=== PATIENT | female | born 1970 | race Caucasian/White ===

== ENCOUNTER → 2017-09-08 | Outpatient (CLI) | payer BC ==
--- NOTE | 2017-09-08 08:20 | DIAGNOSTIC IMAGING REPORT ---
GALLBLADDER-ABD LIMITED CLINICAL HISTORY: R19.01 Abdominal mass, RUQ (right upper quadrant) pain. Mass. TECHNIQUE: Ultrasound COMPARISON STUDY: None FINDINGS: Normal gallbladder. No shadowing gallstones. Common bile duct 5 mm. Liver is uniform. Pancreas and right kidney are unremarkable. No evidence for renal hydronephrosis. IMPRESSION: Normal study The above report was generated using voice recognition software. It may contain grammatical, syntax or spelling errors. Electronically signed by: Gideon Bolivar M.D. 09/08/2017 8:18 AM Dictated Date/Time: 09/08/2017 8:17 AM
== END | disposition home or self-care (01) ==
LOC: C.ULTRBC 07:47
PROVIDERS: ATTEND Surgery
DX: R19.01 Right upper quadrant abdominal swelling, mass and lump (principal)

== ENCOUNTER → 2017-09-19 | Outpatient (CLI) | payer BC ==
[~2017-09-19] MED LIST: SINCALIDE INJ 2.1 MCG in SODIUM CHLORIDE 0.9% 100ML 100 ML IV ONE
--- NOTE | 2017-09-19 15:02 | DIAGNOSTIC IMAGING REPORT ---
HEPATOBILIARY EF IMAGING HISTORY: Pain. Nausea R19.01 Abdominal mass, RUQ (right upper quadrant) COMPARISON: None. TECHNIQUE: Immediately following the intravenous administration of 5.6 mCi Tc-99m Choletec, dynamic anterior abdominal imaging pre/post 2.1 mcg of Kinevac was performed. FINDINGS: Uniform hepatic tracer accumulation is shown. Prompt intrahepatic biliary excretion is seen. The gallbladder, common bile duct, and small bowel are all visualized by 20 minutes. This appearance represents the normal sequence of biliary excretion. The gallbladder ejection fraction following administration of Kinevac was 81 % (normal >35%). IMPRESSION: 1. No evidence for cystic duct obstruction. 2. Gallbladder ejection fraction calculated to be 81 %. The above report was generated using voice recognition software. It may contain grammatical, syntax or spelling errors. Electronically signed by: Gideon Bolivar M.D. 09/19/2017 3:01 PM Dictated Date/Time: 09/19/2017 2:59 PM
== END | disposition home or self-care (01) ==
LOC: C.NUCL 12:29
PROVIDERS: ATTEND Surgery
DX: R19.01 Right upper quadrant abdominal swelling, mass and lump (principal)

== ENCOUNTER 2022-08-30 13:54 | Observation (INO) ==
--- NOTE | 2022-08-30 14:18 | XRay Report ---
XR chest 1V portable CLINICAL HISTORY: Chest pain, nonspecific TECHNIQUE: Single frontal radiograph of the chest was obtained. Comparison: None available at the time of this dictation. FINDINGS: No lines and tubes are seen. The cardiomediastinal silhouette is normal. The lungs are clear. No evid ence of pleural effusion or pneumothorax. IMPRESSION: No acute chest disease. ACT 112: Negative or not required by law. Electronically signed by: Delfino Baeza M.D. 08/30/2022 2:17 PM
[2022-08-30] MEDS ORDERED: ASPIRIN CHEW 324 MG PO STA (14:23)
[2022-08-30] MEDS ORDERED: SODIUM CHLORIDE 0.9% 1000ML 1,000 ML IV ONE (14:23)
[2022-08-30] MEDS ORDERED: NITROGLYCERIN SL 0.4 MG/TAB TAB SL STA (14:23)
--- NOTE | 2022-08-30 14:23 | Emergency Department Note ---
History of Present Illness General Chief Complaint: Chest Pain Stated Complaint: CODE PURPLE Time Seen by Provider: 08/30/22 14:02 History of Present Illness Provider Complaint: chest pain Time: 13:30 Duration: improved Onset: during rest Pain Location: substernal and right chest Severity: moderate Quality: + aching and + dull Relieved By: + nothing Exacerbated By: + inspiration Associated symptoms: + nausea and + dyspnea; no syncope (near syncope), no palpitations or no fever Home Medications Medication Instructions Recorded Confirmed Type multivitamin (Daily Multi-Vitamin 1 tab PO DAILY 11/17/18 08/30/22 History tablet) fluticasone propionate 50 1 spray intranasal DAILY PRN 12/14/21 08/30/22 History mcg/actuation nasal Congestion spray,suspension (Flonase Allergy Relief) topiramate 25 mg tablet 50 mg PO HS #60 tabs 07/17/22 08/30/22 Rx Allergies Allergy/AdvReac Type Severity Reaction Status Date / Time amoxicillin Allergy Unknown RASH Verified 08/30/22 15:40 morphine AdvReac Unknown N/V Verified 08/30/22 15:40 Past Med/Surg History Medical History Abdominal mass, RUQ (right upper quadrant) resolved Acute bronchitis resolved Anxiety Depression History of anesthesia reaction 2015 > pt reports during a dental procedure, dentist said tongue was abnormally large, had to be held back by family medicine physician assistant during the surgery > has lost weight since, feels may no longer be an issue, nothing was reported after last dental procedure Obesity LEEANN (obstructive sleep apnea) no longer using cpap due to weight loss > has lost approx 30-35lbs. Right hip pain Tinea corporis Tubular adenoma of colon Surgical History History of arthroscopy of knee right knee History of breast biopsy benign History of delivery x3 History of endometrial ablation + D&C History of placement of ear tubes History of right hip replacement History of tonsillectomy and adenoidectomy Hx of oral surgery for broken tooth S/P tubal ligation during CS Family History (Updated 08/30/22 @ 14:34 by Alejandro Gutiérrez) Mother Hearing loss Breast cancer genetic testing pending Grandmother (Maternal) Diabetes Grandfather (Maternal) Diabetes Grandfather (Paternal) Cancer Stomach cancer Other Obesity Pulmonary embolism Denies family history of Ovarian cancer Prostate cancer Clotting disorder Myocardial infarction Colorectal cancer Uterine cancer Social History Smoking Status: Former smoker Tobacco Type: Cigarettes packs per day: 0.5; Cigarettes Per Day: 5+; Second Hand Exposure: No; Hx Alcohol Use: Yes Alcohol type: wine and hard liquor Alcohol Intake Frequen cy: Monthly or Less Hx Substance Use: No Preferred Language: Serbian Communication Ability: Effective Visual Impairment: No Limitations Hearing Ability: Normal 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 Beliefs That Will Affect Care: None marital status: Current Living Situation: Family and Significant Other Current Living Situation Comment: lives with fiance current occupational status: employed 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 many Children do You have: 3 Feels Safe at Home: Yes Childhood Exposure to Second-Hand Smoke: No caffeine: Yes during the past year weight has: remained stable Dental Care, Regularly: Yes Physical Activity Frequency: 3-4 Times per Week Seatbelt Use: always Sunscreen Use: Yes Assistive Devices: Glasses Physical Exam Vital Signs Vital Signs - 24 hr 08/30/22 13:55 08/30/22 14:08 08/30/22 14:02 Temperature 36.8 C Temperature Source Oral Pulse Rate 66 69 Pulse Rate [Finger] Pulse Rhythm [Finger] Pulse Strength [Finger] Respiratory Rate 20 Respiratory Effort / Characteristics Respiratory Depth Respiratory Pattern Blood Pressure 163/128 H Blood Pressure [Right Arm] Blood Pressure Mean 139 Blood Pressure Mean [Right Arm] Blood Pressure Position [Right Arm] Pulse Oximetry 95 95 Oxygen Delivery Method Room Air Room Air Sepsis Recent Fever Within 48 Hours No Sepsis New/Unexplained Change in Mental Status N/A Sepsis Action Taken by Nursing No Action Required 08/30/22 15:05 08/30/22 15:35 08/30/22 16:15 Temperature Temperature Source Pulse Rate Pulse Rate [Finger] 86 68 70 Pulse Rhythm [Finger] Regular Pulse Strength [Finger] Normal Respiratory Rate 18 18 18 Respiratory Effort / Characteristics Non-Labored Spontaneous Non-Labored Non-Labored Respiratory Depth Normal Normal Normal Respiratory Pattern Regular Regular Regular Blood Pressure Blood Pressure [Right Arm] 202/105 H 168/98 H 163/99 H Blood Pressure Mean Blood Pressure Mean [Right Arm] 137 121 120 Blood Pressure Position [Right Arm] Sitting Pulse Oximetry 95 95 95 Oxygen Delivery Method Room Air Room Air Room Air Sepsis Recent Fever Within 48 Hours Sepsis New/Unexplained Change in Mental Status Sepsis Action Taken by Nursing Physical Exam HENT: Exam performed. -Head: Normocephalic and atraumatic. -Right Ear: External ear normal. No mastoid erythema -Left Ear: External ear normal. No mastoid erythema EYES: Conjunctivae and EOM are normal. Right eye exhibits no discharge. Left eye exhibits no discharge. No scleral icterus. NECK: Normal range of motion. Neck supple. No JVD present. CV: Normal rate, regular rhythm, normal heart sounds and intact distal pulses. There is no peripheral edema. Palpable radial pulses bue. PULM/CHEST: Effort normal and breath sounds normal. No respiratory distress. No stridor. She has no wheezes. She has no rales. ABD: The abdomen is soft. There is no tenderness. There is no rebound, no guarding, NEURO: Motor and sensation grossly intact. SKIN: Skin is warm and dry. She is not diaphoretic. PSYCH: She has a normal mood and affect. Behavior is normal. Judgment and tho ught content normal. Course Course 1402: The patient was evaluated in room C7. A complete history and physical exam was performed Cardiac monitoring: An order was placed for continuous cardiac monitoring. The monitor shows a rate of 70 with sinus rhythm interpreted by nd 1520: Vital signs stable. Labs and imaging within normal limits including negative chest x-ray D-dimer and troponin. Patient will be admitted [facility] team for chest pain rule out ACS discussed case with Dr. Morales who will evaluate the patient. Administered Medications Topiramate (Topiramate 50 Mg Tab) 50 mg PO HS [facility] Stop: 09/29/22 20:59 Last Admin: 08/30/22 20:09 Dose: 50 mg Documented By: BCM Discontinued Medications Acetaminophen (Acetaminophen 500 Mg Tab) 1,000 mg PO NOW STA Stop: 08/30/22 16:48 Last Admin: 08/30/22 18:18 Dose: 1,000 mg Documented By: ADRIENNE Aspirin (Aspirin Chew 324 Mg) 324 mg PO NOW STA Stop: 08/30/22 14:24 Last Admin: 08/30/22 15:01 Dose: 324 mg Documented By: BAL Sodium Chloride (Nss 1000ml) 1,000 mls @ 999 mls/hr IV .Q1H1M ONE Stop: 08/30/22 15:23 Last Infusion: 08/30/22 16:08 Dose: 0 mls/hr Documented By: ADRIENNE(2) Admin: 08/30/22 15:04 Dose: 999 mls/hr Documented By: BAL Ketorolac Tromethamine (Ketorolac Tromethamine 15 Mg/Ml Vial) 15 mg IV NOW STA Stop: 08/30/22 15:57 Last Admin: 08/30/22 16:05 Dose: 15 mg Documented By: ADRIENNE(2) Nitroglycerin (Nitroglycerin Sl 0.4 Mg/Tab Tab) 0.4 mg SL NOW STA Stop: 08/30/22 14:24 Last Admin: 08/30/22 15:01 Dose: 0.4 mg Documented By: BAL Medical Decision Making Laboratory Data Attestation: I reviewed the patient's lab results. 08/30/22 14:11 08/30/22 14:11 Labs: Lab Results 08/30/22 08/30/22 08/30/22 Range/Units 14:03 14:11 14:11 WBC 7.14 (4.8-10.8) K/ul RBC 5.24 (4.20-5.40) M/uL Hgb 16.6 H (12.0-16.0) g/dl Hct 48.2 H (37.0-47.0) % MCV 92.0 (80.0-100.0) fL MCH 31.7 (25.0-34.0) pg MCHC 34.4 (32.0-36.0) g/dL RDW Std Deviation 41.9 (36.4-46.3) fL RDW Coeff of Domo 12.4 (11.5-14.5) % Plt Count 340 (130-400) K/uL MPV 9.4 (9.4-12.4) fL Immature Gran % (Auto) 0.1 % Neut % (Auto) 57.3 % Lymph % (Auto) 32.2 % Blount % (Auto) 8.5 % Eos % (Auto) 1.1 % Baso % (Auto) 0.8 % Neut # (Auto) 4.08 (1.40-6.50) K/uL Lymph # (Auto) 2.30 (1.2-3.4) K/uL Blount # (Auto) 0.61 H (0.11-0.59) K/uL Eos # (Auto) 0.08 (0-0.50) K/uL Baso # (Auto) 0.06 (0-0.2) K/uL Immature Gran # (Auto) 0.01 (0.01-0.20) K/uL PT (9.0-12.0) Seconds INR (0.9-1.1) APTT (21.0-31.0) Seconds PTT Ratio D-Dimer (0-500) ug/L FEU Sodium 141 (136-145) mmol/L Potassium 3.8 (3.5-5.1) mmol/L Chloride 105 (98-107) mmol/L Carbon Dioxide 28 (21-32) mmol/L Anion Gap 8 (3-11) BUN 11 (6-23) mg/dl Creatinine 0.82 (0.6-1.2) mg/dl Est Cr Clr Drug Dosing 96.9 ml/min Est GFR ( Amer) 97.4 ml/min Est GFR (Non-Af Amer) 84.0 ml/min BUN/Creatinine Ratio 13.4 (10-20) Glucose 91 (70-99(Fasting)) mg/dl POC Glucose 91 (70-99) mg/dl Calcium 9.5 (8.6-10.3) mg/dl Troponin I High Sens 2.6 (0-14) pg/ml Lipase 16 (11-82) U/L 08/30/22 Range/Units 14:11 WBC (4.8-10.8) K/ul RBC (4.20-5.40) M/uL Hgb (12.0-16.0) g/dl Hct (37.0-47.0) % MCV (80.0-100.0) fL MCH (25.0-34.0) pg MCHC (32.0-36.0) g/dL RDW Std Deviation (36.4-46.3) fL RDW Coeff of Domo (11.5-14.5) % Plt Count (130-400) K/uL MPV (9.4-12.4) fL Immature Gran % (Auto) % Neut % (Auto) % Lymph % (Auto) % Blount % (Auto) % Eos % (Auto) % Baso % (Auto) % Neut # (Auto) (1.40-6.50) K/uL Lymph # (Auto) (1.2-3.4) K/uL [place]ount # (Auto) (0.11-0.59) K/uL Eos # (Auto) (0-0.50) K/uL Baso # (Auto) (0-0.2) K/uL Immature Gran # (Auto) (0.01-0.20) K/uL PT 10.1 (9.0-12.0) Seconds INR 0.9 (0.9-1.1) APTT 28.0 (21.0-31.0) Seconds PTT Ratio 1.0 D-Dimer 340 (0-500) ug/L FEU Sodium (136-145) mmol/L Potassium (3.5-5.1) mmol/L Chloride (98-107) mmol/L Carbon Dioxide (21-32) mmol/L Anion Gap (3-11) BUN (6-23) mg/dl Creatinine (0.6-1.2) mg/dl Est Cr Clr Drug Dosing ml/min Est GFR ( Amer) ml/min Est GFR (Non-Af Amer) ml/min BUN/Creatinine Ratio (10-20) Glucose (70-99(Fasting)) mg/dl POC Glucose (70-99) mg/dl Calcium (8.6-10.3) mg/dl Troponin I High Sens (0-14) pg/ml Lipase (11-82) U/L Imaging Data Chest x-ray: Attestation: I personally reviewed and interpreted this imaging study as follows: My impression: Chest x-ray negative. Airway clear. No pneumothorax. No consolidation. No cardiomegaly or cephalization.. No free air under the diaphragm. No fractures of the skeletal structures. Radiologist's impression: Chest X-Ray 08/30/22 14:03 XR chest 1V portable CLINICAL HISTORY: Chest pain, nonspecific TECHNIQUE: Single frontal radiograph of the chest was obtained. Comparison: None available at the time of this dictation. FINDINGS: No lines and tubes are seen. The cardiomediastinal silhouette is normal. The lungs are clear. No evidence of pleural effusion or pneumothorax. IMPRESSION: No acute chest disease. ACT 112: Negative or not required by law. Electronically signed by: Delfino Baeza M.D. 08/30/2022 2:17 PM ECG Data Attestation: I personally reviewed and interpreted this ECG as follows: Indication: chest pain Rate (beats per minute): 73 Rhythm: normal sinus Findings: no ST depression, no ST elevation or no prolonged QT MDM Narrative 1402: The patient was evaluated in room C7. A complete history and physical exam was performed Cardiac monitoring: An order was placed for continuous cardiac monitoring. The monitor shows a rate of 70 with sinus rhythm interpreted by me 1520: Vital signs stable. Labs and imaging within normal limits including negative chest x-ray D-dimer and troponin. Patient will be admitted to the [facility] team for chest pain rule out ACS discussed case with Dr. Morales who will evaluate the patient. Impression & Plan Chest pain Discharge Plan Visit Data Chief Complaint: Chest Pain Stated Complaint: CODE PURPLE ED Provider: Alejandro Gutiérrez Discharge Problem: Chest pain Patient Disposition: Admitted As Inpatient Discharge Instructions Interventions: ED Discharge Assessment Last Done: 08/30/22 17:20 Chest pain Qualifiers: Chest pain type: unspecified Qualified Code(s): R07.9 - Chest pain, unspecified
[2022-08-30 14:34] LABS: Basophils # (auto) 0.06 K/uL (0-0.2); Basophils % (auto) 0.8 %; Eosinophils # (auto) 0.08 K/uL (0-0.50); Eosinophils % (auto) 1.1 %; Hematocrit (blood only) 48.2 % (37.0-47.0); Hemoglobin 16.6 g/dl (12.0-16.0); Immature Granulocytes # (auto) 0.01 K/uL (0.01-0.20); Immature Granulocytes % (auto) 0.1 %; Lymphocytes % (auto) 32.2 %; Mean Corpuscular Hemoglobin 31.7 pg (25.0-34.0); Mean Corpuscular Hgb Conc 34.4 g/dL (32.0-36.0); Mean Platelet Volume 9.4 fL (9.4-12.4); Monocytes # (auto) 0.61 K/uL (0.11-0.59); Monocytes % (auto) 8.5 %; Neutrophils # (auto) 4.08 K/uL (1.40-6.50); Neutrophils % (auto) 57.3 %; Platelet Count 340 K/uL (130-400); RDW Coefficient of Variation 12.4 % (11.5-14.5); RDW Standard Deviation 41.9 fL (36.4-46.3); Red Blood Count 5.24 M/uL (4.20-5.40); White Blood Count 7.14 K/ul (4.8-10.8)
[2022-08-30 14:47] LABS: BUN Creatinine Ratio 13.4 (10-20); Calcium 9.5 mg/dl (8.6-10.3); Creatinine Clr Calc Pharmacy 96.9 ml/min; Est GFR (African American) 97.4 ml/min; Potassium 3.8 mmol/L (3.5-5.1)
[2022-08-30 14:54] LABS: Troponin I High Sensitivity 2.6 pg/ml (0-14)
[2022-08-30 15:05] LABS: D Dimer 340 ug/L FEU (0-500); INR 0.9 (0.9-1.1); Prothrombin Time 10.1 Seconds (9.0-12.0)
[2022-08-30] MEDS ORDERED: KETOROLAC TROMETHAMINE 15 MG/ML VIAL IV STA (15:56)
--- NOTE | 2022-08-30 16:03 | History & Physical Report ---
Date of Service August 30, 2022 Assessment & Plan (1) Chest pain, rule out acute myocardial infarction: Plan: Initial troponin negative. Will continue to trend. If negative and TTE normal suspect patent can be discharged tomorrow as most likely MSK pain given reproducibility on exam. (2) Pre-syncope: Plan: Suspect most likely vagal response in relation to pain. Monitor for recurrent and arrhythmia on telemetry. Plan VTE Prophylaxis - low risk Diet - heart healthy Disposition - observation to med/tele Admission and Anticipated Discharge Date Admission Date: August 30, 2022 History of Present Illness Chief Complaint: Chest pain Primary Care Provider: Malvin Reynolds DO Puneet De La Torre is a 51 year old female who presents to the ER with chest pain. She is an employee at [employer] and a code purple was called. Around 1:30pm she had an episode of chest pain, substernal, no radiation, severity 3-4/10 initially, currently 1-2/10, making it feel like she had to cough, pain reproducible on exam, unknown if worse on exertion as she hasn't been up and walking around yet, occurred while sitting in chair scanning documents. She felt the pain and went to call co-workers name at which point she became dizzy and presyncopal slipping out of chair but did not fall down to the ground. She is still having discomfort in chest. No GERD history of acid taste in her mouth. No prior MS or stroke. Non-smoker. No known HTN or T2DM. No unilateral weakness, change in sensation, change in speech, vision or hearing. This is on a background of getting nasal congestion yesterday and thinking she was gett a cold but after taking allergy medicine this morning she felt better. Takes Topamax for weight loss and for headaches. Takes Claritin and Flonase as needed for allergies. Allergies Allergy/AdvReac Type Severity Reaction Status Date / Time amoxicillin Allergy Unknown RASH Verified 08/30/22 15:40 morphine AdvReac Unknown N/V Verified 08/30/22 15:40 Home Medications Medication Instructions Recorded Confirmed Type multivitamin (Daily Multi-Vitamin 1 tab PO DAILY 11/17/18 08/30/22 History tablet) fluticasone propionate 50 1 spray intranasal DAILY PRN 12/14/21 08/30/22 History mcg/actuation nasal Congestion spray,suspension (Flonase Allergy Relief) topiramate 25 mg tablet 50 mg PO HS #60 tabs 07/17/22 08/30/22 Rx Past Med/Surg History Medical History Abdominal mass, RUQ (right upper quadrant) resolved Acute bronchitis resolved Anxiety Depression History of anesthesia reaction 2015 > pt reports during a dental procedure, dentist said tongue was abnormally large, had to be held back by speech and language assistant during the surgery > has lost weight since, feels may no longer be an issue, nothing was reported after last dental procedure Obesity LEEANN (obstructive sleep apnea) no longer using cpap due to weight loss > has lost approx 30-35lbs. Right hip pain Tinea corporis Tubular adenoma of colon Surgical History History of arthroscopy of knee right knee History of breast biopsy benign History of delivery x3 History of endometrial ablation + D&C History of placement of ear tubes History of right hip replacement History of tonsillectomy and adenoidectomy Hx of oral surgery for broken tooth S/P tubal ligation during CS Family History (Updated 08/30/22 @ 14:34 by Alejandro Gutiérrez) Mother Hearing loss Breast cancer genetic testing pending Grandmother (Maternal) Diabetes Grandfather (Maternal) Diabetes Grandfather (Paternal) Cancer Stomach cancer Other Obesity Pulmonary embolism Denies family history of Ovarian cancer Prostate cancer Clotting disorder Myocardial infarction Colorectal cancer Uterine cancer Social History Smoking Status: Former smoker Tobacco Type: Cigarettes packs per day: 0.5; Cigarettes Per Day: 5+; Second Hand Exposure: No; Hx Alcohol Use: Yes Alcohol type: wine and hard liquor Alcohol Intake Frequency: Monthly or Less Hx Substance Use: No Preferred Language: Algerian Communication Ability: Effective Visual Impairment: No Limitations 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 Beliefs That Will Affect Care: None marital status: Current Living Situation: Family and Significant Other Current Living Situation Comment: lives with fiance 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 occupational status: employed 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 many Children do You have: 3 Feels Safe at Home: Yes Childhood Exposure to Second-Hand Smoke: No caffeine: Yes during the past year weight has: remained stable Dental Care, Regularly: Yes Physical Activity Frequency: 3-4 Times per Week Seatbelt Use: always Sunscreen Use: Yes Assistive Devices: Glasses Review of Systems Review of Systems: All systems reviewed & are unremarkable except as noted in HPI & below Physical Exam Constitutional: WD/WN, vitals as above ENMT: external ear and nose normal, oropharynx normal Neck: trachea midline, no thyromegaly Respiratory: normal respiratory effort, lungs clear to auscultation Cardiovascular: RRR, no murmur, no edema Gastrointestinal (Abdomen): normal bowel sounds, soft, nontender, no hepatosplenomegaly Musculoskeletal: no cyanosis or clubbing, extremities motor strength 5/5 Skin: no rashes, warm and dry Neurologic: moves all extremities and awake; not confused Psychiatric: A+Ox3, euthymic affect Results & Data Results & Data Vital Signs (Past 12 Hours) Vital Signs Temp Pulse Pulse Resp BP BP Pulse Ox 08/30/22 15:35 68 18 168/98 H 95 08/30/22 15:05 86 18 202/105 H 95 08/30/22 14:02 69 08/30/22 14:08 95 08/30/22 13:55 36.8 C 66 20 163/128 H 95 O2 Del Method 08/30/22 15:35 Room Air 08/30/22 15:05 Room Air 08/30/22 14:02 08/30/22 14:08 Room Air 08/30/22 13:55 Room Air Laboratory Results Abnormal lab results 08/30/22 Range/Units 14:11 Hgb 16.6 H (12.0-16.0) g/dl Hct 48.2 H (37.0-47.0) % [place] # (Auto) 0.61 H (0.11-0.59) K/uL Diagnostic Findings XR chest 1V portable CLINICAL HISTORY: Chest pain, nonspecific TECHNIQUE: Single frontal radiograph of the chest was obtained. Comparison: None available at the time of this dictation. FINDINGS: No lines and tubes are seen. The cardiomediastinal silhouette is normal. The lungs are clear. No evidence of pleural effusion or pneumothorax. IMPRESSION: No acute chest disease. Medications Administered ER Medications Given: ASA 324mg PO NSS 1L bolus Nitroglycerin 0.4mg SL Toradol 15mg IV ECG Rate (beats per minute): 73 Rhythm: sinus with SA Findings: no acute ischemic change Comparison ECG Date: from (Jan 11, 2019) Change: no significant change Code Status & VTE Plan Code Status Full VTE Prophylaxis Plan VTE Prophylaxis will be ordered: No PG Care Time/CCT Total # of Minutes Spent Total Time Spent with Patient: Total time spent is greater than 50% in coordination of care (as documented) at patient's floor/unit and/or counseling patient: Coding Level of Care Code 57245 INT INP/OBS CARE 2/55MIN Diagnoses Chest pain, rule out acute myocardial infarction R07.9 Pre-syncope R55
[2022-08-30] MEDS ORDERED: ACETAMINOPHEN 500 MG TAB PO STA (16:47)
--- NOTE | 2022-08-30 17:16 | Electrocardiogram Report ---
Test Reason : Blood Pressure : / mmHG Vent. Rate : 073 BPM Atrial Rate : 073 BPM P-R Int : 150 ms QRS Dur : 084 ms QT Int : 382 ms P-R-T Axes : 030 047 043 degrees QTc Int : 420 ms Normal sinus rhythm with sinus arrhythmia Normal ECG When compared with ECG of 11-JAN-2019 08:47, No significant change was found Confirmed by Barrie Amaya ([id number]) on 08/30/2022 5:15:59 PM Referred By: REFERRED SELF Confirmed By:Barrie Amaya
[2022-08-30] MEDS ORDERED: ACETAMINOPHEN 325 MG TAB PO PRN (17:44)
[2022-08-30] MEDS ORDERED: TOPIRAMATE 50 MG TAB PO SCH (21:00)
[2022-08-31 06:47] LABS: Basophils # (auto) 0.06 K/uL (0-0.2); Basophils % (auto) 0.8 %; Eosinophils # (auto) 0.11 K/uL (0-0.50); Eosinophils % (auto) 1.4 %; Hematocrit (blood only) 42.4 % (37.0-47.0); Hemoglobin 14.9 g/dl (12.0-16.0); Immature Granulocytes # (auto) 0.02 K/uL (0.01-0.20); Immature Granulocytes % (auto) 0.3 %; Lymphocytes # (auto) 2.58 K/uL (1.2-3.4); Lymphocytes % (auto) 33.6 %; Mean Corpuscular Hgb Conc 35.1 g/dL (32.0-36.0); Mean Platelet Volume 9.4 fL (9.4-12.4); Monocytes # (auto) 0.67 K/uL (0.11-0.59); Monocytes % (auto) 8.7 %; Neutrophils # (auto) 4.23 K/uL (1.40-6.50); Neutrophils % (auto) 55.2 %; Platelet Count 292 K/uL (130-400); RDW Coefficient of Variation 12.7 % (11.5-14.5); RDW Standard Deviation 41.4 fL (36.4-46.3); Red Blood Count 4.66 M/uL (4.20-5.40); White Blood Count 7.67 K/ul (4.8-10.8)
[2022-08-31 06:54] LABS: Anion Gap 8 (3-11); BUN Creatinine Ratio 15.7 (10-20); Blood Urea Nitrogen 11 mg/dl (6-23); Calcium 8.3 mg/dl (8.6-10.3); Carbon Dioxide 25 mmol/L (21-32); Chloride 108 mmol/L (98-107); Chol HDL Ratio 3.3 (0-5); Cholesterol 156 mg/dl (0-200); Creatinine Clr Calc Pharmacy 113.7 ml/min; Est GFR (African American) 117.9 ml/min; Est GFR (Non-African American) 101.7 ml/min; Glucose 92 mg/dl (70-99(Fasting)); HDL Cholesterol 48 mg/dl; LDL Cholesterol Calculated 88 mg/dl; Potassium 4.2 mmol/L (3.5-5.1); Sodium 141 mmol/L (136-145); Triglycerides 100 mg/dl (0-150); VLDL Cholesterol 20 mg/dl (0-30)
[2022-08-31 07:02] LABS: Troponin I High Sensitivity < 2.3 pg/ml (0-14)
[2022-08-31 07:14] LABS: Estimated Average Glucose 103 mg/dl; Hemoglobin A1C 5.2 % (4.5-5.6)
--- NOTE | 2022-08-31 11:07 | Discharge Summary ---
Date of Service August 31, 2022 Admission HPI Per Admitting Provider Puneet De La Torre is a 51 year old female who presents to the ER with chest pain. She is an employee at [employer] and a code purple was called. Around 1:30pm she had an episode of chest pain, substernal, no radiation, severity 3-4/10 initially, currently 1-2/10, making it feel like she had to cough, pain reproducible on exam, unknown if worse on exertion as she hasn't been up and walking around yet, occurred while sitting in chair scanning documents. She felt the pain and went to call co-workers name at which point she became dizzy and presyncopal slipping out of chair but did not fall down to the ground. She is still having discomfort in chest. No GERD history of acid taste in her mouth. No prior FL or stroke. Non-smoker. No known HTN or T2DM. No unilateral weakness, change in sensation, change in speech, vision or hearing. This is on a background of getting nasal congestion yesterday and thinking she was gett a cold but after taking allergy medicine this morning she felt better. Takes Topamax for weight loss and for headaches. Takes Claritin and Flonase as needed for allergies. Principal Diagnosis chest pain Discharge Exam Constitutional WD/WN, vitals as above ENMT external ear and nose normal, oropharynx normal Neck trachea midline, no thyromegaly Respiratory normal respiratory effort, lungs clear to auscultation Cardiovascular RRR, no murmur, no edema Musculoskeletal no cyanosis or clubbing, extremities motor strength 5/5 Skin no rashes, warm and dry Neurologic moves all extremities and awake; not confused Psychiatric A+Ox3, euthymic affect Discharge Data Allergies Allergy/AdvReac Type Severity Reaction Status Date / Time amoxicillin Allergy Unknown RASH Verified 08/30/22 15:40 morphine AdvReac Unknown N/V Verified 08/30/22 15:40 Consultations 08/30/22 15:19 ED Decision to Admit Stat Hospital Course (1) Chest pain, rule out acute myocardial infarction: $11 yo female presnted with chest pain. Likely musculoskeletal in nature. Pain lasted for hours from about 1:45 pm to close to midnight. Given extensive duration of chest pain with no increase of troponin. This rules out an ACS. Will discharge patient, and have her followup with her PCP. Normal Echo (2) Pre-syncope: Suspect most likely vagal response in relation to pain. Total Time Total Time Spent Total Time Spent (In Minutes): 35 Discharge Plan Discharge Items Patient Disposition: Home - Self-Care Reason For Visit: CHEST PAIN RULE OUT FL Discharge Diagnosis: chest pain rule out FL Activity: Resume your previous activity Non-emergency contact: Primary Care Provider Call non-emergency contact if: you have any medication questions Follow-up/Referrals: Malvin Reynolds, [Primary Care Provider] - 09/06/22 9:20 am Diet: Heart Healthy Addtl Attending Provider Instructions: Recommend followup with your PCP in 1-2 weeks. Pending Studies at Discharge: No Stand-Alone Forms: My [employer], Smoking Cessation Medications and DC Order Prescriptions: Continued multivitamin [Daily Multi-Vitamin] tablet 1 tab PO DAILY topiramate 25 mg tablet 50 mg PO HS Qty: 60 2RF fluticasone propionate [Flonase Allergy Relief] 50 mcg/actuation spray,suspension 1 spray intranasal DAILY PRN (Reason: Congestion) Rx Instructions: administer into each nostril Discharge Orders: Discharge Order (Routine); Ordered 08/31/22 Ordered By: Tank Gerardo Admission Data Admit Date/Time: 08/30/22 16:47 Attending Provider: Tank Gerardo Admit Provider: Eleno Morales Primary Care Provider: Malvin Reynolds Other Providers: Eleno Morales Other Interventions: Discharge Summary Assessment (RN) Last Done: 08/31/22 11:26 Coding Level of Care Code 00495 INP/OBS DISCH >30 MIN Diagnoses Chest pain, rule out acute myocardial infarction R07.9 Pre-syncope R55
--- NOTE | 2022-08-31 12:48 | XCELERA ---
[id number]
== END 2022-08-31 11:35 | disposition home or self-care (01) ==
LOC: 2N 13:54 → ED 13:54 → SUATTDRO 16:47 → 2N 17:20

== ENCOUNTER 2024-01-08 11:31 | Inpatient (IN) ==
[2024-01-08] MEDS ORDERED: LABETALOL HCL IV 5 MG/ML 20ML IV STA (11:48)
--- NOTE | 2024-01-08 11:50 | Emergency Department Note ---
Impression & Plan Stroke-like symptom, Numbness and tingling, Acute right-sided muscle weakness ED Provider Note NAME: YESY VALLE AGE: 53 SEX: F : 1970 ARRIVES VIA: Walk-In INFORMANT: Patient, ED PROVIDER(S): Stanley Ledbetter DO CHIEF COMPLAINT: Weakness HPI: The patient is a 53-year-old female who presented to the emergency department for an evaluation of right-sided weakness. She states that she for started noticing a tingling sensation and a warm sensation on the right side of her face. She then started noticing the same sensation in her right arm and right leg. The patient has no history of stroke or irregular heartbeat. She does not take blood thinners. She states that this began approximately 11 AM. The patient denies having any headache nausea or vomiting. She did not see a provider prior to coming emergency department but came directly to the emergency department because of concerns for stroke. ROS: See above HPI for pertinent positives & negatives. A total of 10 systems reviewed and were otherwise negative. PAST MEDICAL HISTORY: See Below PAST SURGICAL HISTORY: See Below FAMILY HISTORY: See Below SOCIAL HISTORY: See Below HOME MEDICATIONS: See Below ALLERGIES: See Below VITALS: See Below PHYSICAL EXAMINATION: GENERAL: The patient is awake and alert. She is very anxious appearing. EYES: The conjunctivae are clear. The pupils are round and reactive. EARS, NOSE, MOUTH AND THROAT: The nose is without any evidence of any deformity. NECK: The neck is nontender and supple. RESPIRATORY: Normal respiratory effort is noted there is no evidence of wheezing rhonchi or rales CARDIOVASCULAR: Regular rate and rhythm noted there no murmurs rubs or gallops normal S1 normal S2. GASTROINTESTINAL: The abdomen is soft. Abdomen is nontender. MUSCULOSKELETAL/EXTREMITIES: There is no evidence of gross deformity full range of motion is noted in the hips and shoulders. SKIN: There is no obvious evidence of any rash. There are no petechiae, pallor or cyanosis noted. NEUROLOGIC: Patient is awake alert and oriented x3. There was a facial droop sparing the forehead on the right mostly involving the right corner of the mouth. 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 The patient is able to hold each leg off of the bed for greater than 5 seconds but there is a tremulous finding in the right lower extremity. MEDICAL DECISION MAKING: The patient is a 53-year-old female who presented to the emergency department for an evaluation of strokelike symptoms. The patient presented through triage and was identified with possible strokelike symptoms. She was taken directly to CAT scan. I evaluated the patient and CAT scan. She was found to have a right- sided facial droop with forehead sparing but also she had right upper and right lower extremity weakness. She also had subjective numbness over the right arm and right leg. The patient was felt to be a good candidate for TNK. Initial CT showed no acute process. Pharmacy was consulted and had TNK at the bedside but not drawn up. The patient's initial NIH was approximately 5. She did slowly improve while she was in the emergency department. I discussed the patient's condition with the teleroke neurologist. After their evaluation they felt the patient was improving and did not want to recommend TNK at this time. The patient was agreeable to that plan. I discussed her condition with the on-call [facility] hospitalist. The patient initially had high blood pressure which improved without intervention. Triage Nursing notes reviewed. Prior medical records reviewed Vital Signs: reviewed and remarkable for no significant abnormalities Differential diagnosis: Infection, dehydration, metabolic abnormality, hypo/hyperglycemia, electrolyte disturbance, anemia, hypoxia, cardiac sources, intracerebral event, toxicologic, neurologic, as well as other pathologies. ER treatment provided: See below Diagnostics interpreted by me: ECG: EKG was obtained in the emergency department. My interpretation is normal sinus rhythm at 67 bpm. There is no ectopy. There is no acute ST segment abnormalities noted. This was compared to a tracing from August 21, 2023. No changes were noted. Cardiac Monitoring: An order was placed for continuous cardiac monitoring. The monitor shows a rate of 67 bpm with sinus rhythm. Laboratory studies: As stated above and show below. Imaging studies: See below. Radiographic imaging was reviewed by myself Consultation(s): I discussed this case with Dr. Sheriff who [facility]. I discussed this case with Dr. Clifford who is on-call for the [facility] group. ED COURSE: Procedures: none Critical Care: I have personally spent greater than 45 minutes of critical care time in the direct management of this patient. This includes bedside care, interpretation of diagnostic studies, and testing, discussion with consultants, patient, and family members, and other required patient management activities. This 45 minutes is in excess of all separately billable procedures. Past Med/Surg History Problem List (Updated 01/08/24 @ 13:22 by Stanley Ledbetter DO) Acute right-sided muscle weakness (Acute) Numbness and tingling (Acute) Stroke-like symptom (Acute) Stroke-like symptom Bradykinesia Gait abnormality 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 Cognitive changes Tremor Pre-syncope Left knee pain Abnormal uterine bleeding (AUB) Polyarthralgia LEEANN (obstructive sleep apnea) Metabolic syndrome Breast mass Vertigo Parkinson disease Obesity Right hip pain Medical History History of migraine Tremor History of COVID-19 02/2023 Tubular adenoma of colon LEEANN (obstructive sleep apnea) Previous CPAP (has not used since weight loss of approximately 30-35lbs) Depression Anxiety Tinea corporis Surgical History History of anesthesia reaction Patient reports during a dental procedure in 2015, dentist said tongue was abnormally large and had to be held back by account assistant during the surgery > has lost weight since, feels may no longer be an issue, nothing was reported after more recent dental procedure History of colonoscopy S/P dilation and curettage Hx of oral surgery for broken tooth S/P tubal ligation during CS History of tonsillectomy and adenoidectomy History of placement of ear tubes History of delivery x3 History of breast biopsy benign History of endometrial ablation + D&C History of arthroscopy of knee right knee History of right hip replacement Family History Mother Hearing loss Breast cancer Grandmother (Maternal) Diabetes Grandfather (Maternal) Diabetes Grandfather (Paternal) Cancer Stomach cancer Father Pulmonary embolism Other Obesity Denies family history of Ovarian cancer Prostate cancer Clotting disorder Myocardial infarction Colorectal cancer Uterine cancer Social History Smoking Status: Former smoker Tobacco Type: Cigarettes packs per day: 0.5; Cigarettes Per Day: 5+; Second Hand Exposure: No; Do You Dip or Chew Tobacco: No; Hx Alcohol Use: Yes Alcohol type: wine and hard liquor Alcohol Intake Frequency: Monthly or Less Hx Substance Use: No Preferred Language: Swiss Communication Ability: Effective Visual Impairment: No Limitations Hearing Ability: Normal Senior Account Manager Required: No Beliefs That Will Affect Care: None marital status: Current Living Situation: Spouse Current Living Situation Comment: lives with roney current occupational status: employed 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 many Children do You have: 3 Feels Safe at Home: Yes Childhood Exposure to Second-Hand Smoke: No Diet: regular caffeine: Yes during the past year weight has: remained stable Dental Care, Regularly: Yes Physical Activity Frequency: 3-4 Times per Week Seatbelt Use: always Sunscreen Use: Yes Assistive Devices: Glasses Allergies Allergies Allergy/AdvReac Type Severity Reaction Status Date / Time amoxicillin Allergy Unknown Rash Verified 11/20/23 08:36 morphine AdvReac Unknown N/V Verified 11/20/23 08:36 Home Meds Home Medications Medication Instructions Recorded Confirmed multivitamin (Daily Multi-Vitamin 1 tab PO DAILY 11/17/18 01/08/24 tablet) fluticasone propionate 50 1 spray intranasal DAILY PRN 12/14/21 01/08/24 mcg/actuation nasal Congestion spray,suspension (Flonase Allergy Relief) methocarbamol 500 mg tablet 500 mg PO Q8H PRN Spasms 01/30/23 01/08/24 venlafaxine 75 mg capsule,extended 75 mg PO BID 10/06/23 01/08/24 release 24 hr carbidopa ER 50 mg-levodopa 200 mg 1.5 tab PO TID 01/08/24 01/08/24 tablet,extended release ondansetron 4 mg disintegrating 4 mg PO DIRECTED PRN n/v 01/08/24 01/08/24 tablet Previous Rx's Medication Instructions Recorded gabapentin 400 mg capsule 400 mg PO TID #90 caps 08/15/23 Results & Data (ED) Vital Signs Vital Signs - 24 hr 01/08/24 11:36 01/08/24 12:00 01/08/24 12:01 Temperature 36.8 C Temperature Source Temporal Artery Scan Pulse Rate 92 H 81 80 Pulse Rate [Apical] Pulse Rate from SpO2 Sensor 82 Respiratory Rate 18 20 Respiratory Effort / Characteristics Non-Labored Respiratory Depth Normal Blood Pressure 177/111 H 126/87 Blood Pressure [Left Arm] Blood Pressure Mean 133 100 Blood Pressure Mean [Left Arm] Blood Pressure Position [Left Arm] Pulse Oximetry 97 97 Oxygen Delivery Method Room Air Room Air Sepsis Recent Fever Within 48 Hours No Sepsis New/Unexplained Change in Mental Status No Sepsis Action Taken by Nursing No Action Required 01/08/24 12:30 01/08/24 12:37 01/08/24 12:37 Temperature Temperature Source Pulse Rate 75 Pulse Rate [Apical] 67 Pulse Rate from SpO2 Sensor 75 Respiratory Rate 17 20 Respiratory Effort / Characteristics Non-Labored Spontaneous Respiratory Depth Normal Blood Pressure 131/94 Blood Pressure [Left Arm] 144/90 H Blood Pressure Mean 112 Blood Pressure Mean [Left Arm] 108 Blood Pressure Position [Left Arm] Sitting Pulse Oximetry 95 96 Oxygen Delivery Method Room Air Room Air Sepsis Recent Fever Within 48 Hours Sepsis New/Unexplained Change in Mental Status Sepsis Action Taken by Fdc Medications Current Medication List: was personally reviewed by me Laboratory Data Attestation: I reviewed the patient's lab results. 01/08/24 12:10 01/08/24 12:10 Lab Results 01/08/24 01/08/24 Range/Units 12:06 12:10 WBC 6.56 (4.8-10.8) K/ul RBC 4.84 (4.20-5.40) M/uL Hgb 15.2 (12.0-16.0) g/dl Hct 44.7 (37.0-47.0) % MCV 92.4 (80.0-100.0) fL MCH 31.4 (25.0-34.0) pg MCHC 34.0 (32.0-36.0) g/dL RDW Std Deviation 39.8 (36.4-46.3) fL RDW Coeff of Domo 11.8 (11.5-14.5) % Plt Count 255 (130-400) K/uL MPV 9.0 L (9.4-12.4) fL Immature Gran % (Auto) 0.2 % Neut % (Auto) 62.1 % Lymph % (Auto) 24.7 % Childress % (Auto) 10.7 % Eos % (Auto) 1.2 % Baso % (Auto) 1.1 % Neut # (Auto) 4.08 (1.40-6.50) K/uL Lymph # (Auto) 1.62 (1.20-3.40) K/uL Childress # (Auto) 0.70 H (0.11-0.59) K/uL Eos # (Auto) 0.08 (0.00-0.50) K/uL Baso # (Auto) 0.07 (0.00-0.20) K/uL Immature Gran # (Auto) 0.01 (0.01-0.20) K/uL PT 10.3 (9.0-12.0) Seconds INR 0.9 (0.9-1.1) APTT 29 (21-31) Seconds PTT Ratio 1.1 Sodium 135 L (136-145) mmol/L Potassium 4.0 (3.5-5.1) mmol/L Chloride 102 (98-107) mmol/L Carbon Dioxide 29 (21-32) mmol/L Anion Gap 4 (3-11) BUN 15 (6-23) mg/dl Creatinine 0.80 (0.6-1.2) mg/dl Est Cr Clr Drug Dosing 100.7 ml/min Est GFR ( Amer) 98.9 ml/min Est GFR (Non-Af Amer) 85.4 ml/min BUN/Creatinine Ratio 18.8 (10-20) Glucose 93 (70-99(Fasting)) mg/dl POC Glucose 106 H (70-99) mg/dl Calcium 8.7 (8.6-10.3) mg/dl Magnesium 2.0 (1.7-2.4) mg/dl Total Bilirubin 0.7 (0.2-1.0) mg/dl AST 13 (13-39) U/L ALT 5 L (7-52) U/L Alkaline Phosphatase 68 (34-104) U/L Troponin I High Sens < 2.3 (0-14) pg/ml Total Protein 6.2 (6.0-8.3) gm/dl Albumin 4.0 (3.4-5.0) gm/dl Globulin 2.2 L (2.5-4.0) gm/dl Albumin/Globulin Ratio 1.8 (0.9-2) Administered Medications Discontinued Medications Ioversol (Optiray 320 125ml) 120 ml IV ONCE ONE Stop: 01/08/24 11:55 Last Admin: 01/08/24 11:54 Dose: 120 ml Documented By: SOPHIA Imaging Data Attestation: I personally reviewed and interpreted this imaging study as follows: My Impression: 1 view chest x-ray was obtained in the emergency department. My interpretation is no free air or definite filtrate, final report below. CT of the brain was obtained in the emergency department. My interpretation is no intracranial hemorrhage or mass effect, final report below. Radiologist's Impression: Chest X-Ray 01/08/24 11:38 XR chest 1V portable CLINICAL HISTORY: neuro deficit, acute stroke suspected COMPARISON STUDY: Chest radiograph August 30, 2022. FINDINGS: Lung volumes are normal. Lungs are clear. There is no pneumothorax or pleural effusion. Cardiac size is normal. Mediastinal contours are normal. There is no evidence for pulmonary edema. IMPRESSION: No acute cardiopulmonary findings. ACT 112: Negative or not required by law. Electronically signed by: Jack Major M.D. 01/08/2024 12:[address] 01/08/24 11:38 CT OF THE HEAD WITHOUT CONTRAST CLINICAL HISTORY: neuro deficit, acute stroke suspected. Right-sided weakness. COMPARISON STUDY: MRI of the brain November 15, 2022. Head CT August 25, 2023. TECHNIQUE: Helical axial images of the head were obtained without IV contrast. Automated exposure control was utilized for the study. A dose lowering technique was utilized adhering to the principles of ALARA. FINDINGS: No acute intracranial hemorrhage, midline shift or mass effect is present. The ventricular system is unremarkable. The basal cisterns are patent. No extra-axial collections are present. There are no findings to suggest acute dural sinus thrombosis or acute territorial infarct. No significant calvarial abnormalities are present. Visualized portions of the sinuses and mastoid air cells are clear. IMPRESSION: No acute intracranial findings. ACT 112: Negative or not required by law. Electronically signed by: Jack Major M.D. 01/08/2024 11:49 AM Head CTA 01/08/24 11:38 HEAD CTA HISTORY: neuro deficit, acute stroke suspected TECHNIQUE: Multiaxial CT images of the head were performed both before and after the intravenous administration of contrast to evaluate the major cerebral vessels. 3D/MIP images were also obtained. Sagittal and coronal reformats were reviewed. A dose lowering technique was utilized adhering to the principles of ALARA. COMPARISON: Head CT 08/25/23. FINDINGS: There is no mass, hematoma, midline shift, or acute infarct. Visualized intracranial internal carotid arteries, distal vertebral arteries, and basilar artery are widely patent. There is no significant stenosis, occlusion, or aneurysm seen within the bilateral ACAs, MCAs, or health care liaison. The major dural venous sinuses are patent. 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 This is considered to be a normal variant. IMPRESSION: No significant stenosis, occlusion, or aneurysm within the [place]. ACT 112: Negative or not required by law. Electronically signed by: Oliver Rosario M.D. 01/08/2024 12:23 PM Neck CTA 01/08/24 11:38 CT angio neck with con CLINICAL HISTORY: 53 years-old Female with neuro deficit, acute stroke suspected. Acute strokelike symptoms COMPARISON STUDY: Head CT and CTA had studies of same TECHNIQUE: Following the IV administration of 120 mL of Optiray, CT angiogram of the neck was performed from the aortic arch to the skull base. Images are reviewed in the axial, sagittal, and coronal planes. 3-D MIPS images are created and assessed. IV contrast was administered without complication. All measurements were calculated based on NASCET criteria. A dose lowering technique was utilized adhering to the principles of ALARA. FINDINGS: Patent carotid and vertebral arteries. 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 No aneurysm, dissection, high-grade stenosis or arterial occlusion. Lung apices are clear. No pneumothorax. Unremarkable soft tissues. No lymphadenopathy or acute fracture. IMPRESSION: 1. No aneurysm, dissection, high-grade stenosis or arterial occlusion. 2. 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 ACT 112: Negative or not required by law. The above report was generated using voice recognition software. It may contain grammatical, syntax or spelling errors. Electronically signed by: Selvin Peres M.D. 01/08/2024 12:18 PM Discharge Plan Visit Data Chief Complaint: Stroke/CVA Symptoms Stated Complaint: FACE FEELS NUMB, R ARM FEELS HEAVY ED Provider: Stanley Ledbetter Discharge Problem: Stroke-like symptom, Numbness and tingling, Acute right-sided muscle weakness Patient Disposition: Being Evaluated by Hospitalist Forms Stand Alone Forms: [facility] [employer] Prescriptions Prescriptions: No Action methocarbamol 500 mg tablet 500 mg PO Q8H PRN (Reason: Spasms) Patient Comments: using as needed because script is low Rx Instructions: last picked up July 2023 venlafaxine 75 mg capsule,extended release 24hr 75 mg PO BID gabapentin 400 mg capsule 400 mg PO TID Qty: 90 2RF Rx Instructions: last picked up in october multivitamin [Daily Multi-Vitamin] tablet 1 tab PO DAILY Rx Instructions: otc unable to verify fluticasone propionate [Flonase Allergy Relief] 50 mcg/actuation spray,suspension 1 spray intranasal DAILY PRN (Reason: Congestion) Rx Instructions: not on file with pharmacy administer into each nostril carbidopa-levodopa 50-200 mg tablet extended release 1.5 tab PO TID Rx Instructions: original: 1 tab po QID per pharmacy 1 and 1/2 tabs po TID ondansetron 4 mg tablet,disintegrating 4 mg PO DIRECTED PRN (Reason: n/v) Rx Instructions: not on file with pharmacy 4 mg orally ONCE OR TWICE DAILY NEEDED; Referrals Referrals: Eduin Ortiz MD [Primary Care Provider] -
[2024-01-08] MEDS: OPTIRAY 320 125ml IV ONE (11:54)
[2024-01-08] MEDS ORDERED: No Aspirin within 24hrs of THROMBOLYTIC-Stroke PO SCH (12:00)
[2024-01-08] MEDS ORDERED: TENECTEPLASE 25 MG in SYRINGE 0 ML IV ONE (12:03)
--- NOTE | 2024-01-08 12:20 | CT Scan Report ---
CT angio neck with con CLINICAL HISTORY: 53 years-old Female with neuro deficit, acute stroke suspected. Acute strokelike symptoms COMPARISON STUDY: Head CT and CTA had studies of same TECHNIQUE: Following the IV administration of 120 mL of Optiray, CT angiogram of the neck was perform ed from the aortic arch to the skull base. Images are reviewed in the axial, sagittal, and coronal pl anes. 3-D MIPS images are created and assessed. IV contrast was administered without complication. Al l measurements were calculated based on NASCET criteria. A dose lowering technique was utilized adhe ring to the principles of ALARA. FINDINGS: Patent carotid and vertebral arteries. Incidental note is made of a persistent primitive trigeminal a rtery on the right, image 39 series 6 with developmentally diminutive vertebral and basilar arteries. No aneurysm, dissection, high-grade stenosis or arterial occlusion. Lung apices are clear. No pneumothorax. Unremarkable soft tissues. No lymphadenopathy or acute fractu re. IMPRESSION: 1. No aneurysm, dissection, high-grade stenosis or arterial occlusion. 2. 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 ACT 112: Negative or not required by law. The above report was generated using voice recognition software. It may contain grammatical, syntax o r spelling errors. Electronically signed by: Selvin Peres M.D. 01/08/2024 12:18 PM
--- NOTE | 2024-01-08 12:25 | CT Scan Report ---
HEAD CTA HISTORY: neuro deficit, acute stroke suspected TECHNIQUE: Multiaxial CT images of the head were performed both before and after the intravenous admi nistration of contrast to evaluate the major cerebral vessels. 3D/MIP images were also obtained. Sag ittal and coronal reformats were reviewed. A dose lowering technique was utilized adhering to the libertad Collins. COMPARISON: Head CT 08/25/23. FINDINGS: There is no mass, hematoma, midline shift, or acute infarct. Visualized intracranial r d internship al carotid arteries, distal vertebral arteries, and basilar artery are widely patent. There is no sig nificant stenosis, occlusion, or aneurysm seen within the bilateral ACAs, MCAs, or pipe covering molder. The major du ral venous sinuses are patent. Incidental note is made of a severely hypoplastic proximal to mid basi lar artery and distal vertebral arteries with a right-sided persistent trigeminal artery. This is con sidered to be a normal variant. IMPRESSION: No significant stenosis, occlusion, or aneurysm within the rosebud of [place]. ACT 112: Negative or not required by law. Electronically signed by: Oliver Rosario M.D. 01/08/2024 12:23 PM
[2024-01-08 12:31] LABS: Basophils # (auto) 0.07 K/uL (0.00-0.20); Basophils % (auto) 1.1 %; Eosinophils # (auto) 0.08 K/uL (0.00-0.50); Eosinophils % (auto) 1.2 %; Hematocrit (blood only) 44.7 % (37.0-47.0); Hemoglobin 15.2 g/dl (12.0-16.0); Immature Granulocytes # (auto) 0.01 K/uL (0.01-0.20); Immature Granulocytes % (auto) 0.2 %; Lymphocytes # (auto) 1.62 K/uL (1.20-3.40); Lymphocytes % (auto) 24.7 %; Mean Corpuscular Hemoglobin 31.4 pg (25.0-34.0); Mean Corpuscular Volume 92.4 fL (80.0-100.0); Monocytes % (auto) 10.7 %; Neutrophils # (auto) 4.08 K/uL (1.40-6.50); Neutrophils % (auto) 62.1 %; Platelet Count 255 K/uL (130-400); RDW Coefficient of Variation 11.8 % (11.5-14.5); RDW Standard Deviation 39.8 fL (36.4-46.3); Red Blood Count 4.84 M/uL (4.20-5.40); White Blood Count 6.56 K/ul (4.8-10.8)
--- NOTE | 2024-01-08 12:32 | History & Physical Report ---
Date of Service January 08, 2024 Assessment & Plan (1) Stroke-like symptom: Plan: Strokelike deficits Right-sided facial numbness/tingling,? Some droop improved on reassessment, right upper extremity weakness, right lower extremity weakness CThead without acute findings, CTAhead/neck without acute findings TNKase was initially prepared, then was deferred on telestroke evaluation due to mild and slightly improving symptoms Patient with ongoing right upper extremity weakness different from her baseline compared to the left. Stat MRI does not show evidence of acute CVA Echo pending BP 144/90. Aspirin/Plavix ordered. Failed bedside swallow due to facial asymmetry, aspirin converted to MS Continue statin Lipid panel pending DDx includes Parkinson exacerbation, migraine Reviewed with neurology. Will continue with aspirin/Plavix at this time. Will repeat a MRI with gadolinium either today or tomorrow. Drink exam is currently stable; however if she has any recrudescence/worsening of her right upper/right lower extremity strength then recommend recalling telestroke alert for reevaluation. Strength is stable and without worsening at reevaluation 1400. Hypercoag panel added. Apprecriate recs (2) Parkinson disease: Plan: Continue Sinemet (3) LEEANN (obstructive sleep apnea): Plan: Continue CPAP Plan Stable issues History of back pain, left lower extremity neuropathy: Completely resolved with back injections and currently with no symptoms. No acute change in management Anxiety/depression: Continue Effexor DVT prophylaxis: SCDs. Pharmacal prophylaxis deferred pending thrombolysis reevaluation CODE STATUS: Full code Disposition: PCU Diet: N.p.o. until able to pass bedside swallow, then may progress to heart healthy History of Present Illness Primary Care Provider: Eduin Ortiz MD 53yo F with a past history of parkinsonism on carbidopa-levodopa, leeann, allergic rhinitisPresented with abrupt onset of right sided facial tingling, right upper extremity weakness, and some right lower extremity weakness different from her normal baseline which started suddenly at approximately 11 AM. She presented urgently to the ER for stroke evaluation. Per signout patient received aspirin/Plavix and telestroke was consulted. CThead was normal. CTA head/neck were without high-grade stenosis/occlusion. Initial NIHSS was 5. On review by telestroke thrombolysis was not recommended due to mild and improving symptoms. On bedside reexamination patient does continue to have 4 -/5 right-sided ladle puller strength, 4 -/5 elbow flexion/extension, 4 -/5 shoulder flexion compared to robust 5/5 strength on the left. Hip flexion is 4+/5, easily fatigued and qualitatively decreased on the right compared to the left and with drift. Fac ial sensation in V1/V2/V3 are all with qualitative tingling and decreased to soft touch compared to the left side of the face. Denies prior history of strokes Does have a history of parkinsonism and endorses some baseline right sided weakness compared to the left, but notes that current strength and sensory change is much different than her normal baseline She has not had any recent medication adjustments, did take her Sinemet this morning. She has taken gabapentin for back pain and follows with Dr. Sotomayor for injections, she has had no recent issues and has had no pain whatsoever in the last few days. In the past she has left lower extremity tingling which completely resolved following back injections and which have not been present in the preceding week. Denies chest pain or chest pressure, denies palpitations Denies fever, chills, sweats. Denies lightheadedness, dizziness, syncope, presyncope Has had intermittent headaches without aura in the last few weeks. Endorses mild frontal headache at time of assessment. No photo or phono sensitivity Endorses vision change in her right eye. Right eye is with acute blurriness in all visual quadrants. EOM is intact without pain, entrapment, or nystagmus. Pupils are reactive to light Medical History: Reviewed Medications: Reviewed Surgical History: Reviewed Family history: Reviewed Allergies: Reviewed Social History: Denies recent tobacco use, past history of intermittent social tobacco use many years ago. No recent alcohol use. No recreational drug use Code Status: Full code Allergies Allergy/AdvReac Type Severity Reaction Status Date / Time amoxicillin Allergy Unknown Rash Verified 11/20/23 08:36 morphine AdvReac Unknown N/V Verified 11/20/23 08:36 Home Medications Medication Instructions Recorded Confirmed Type multivitamin (Daily Multi-Vitamin 1 tab PO DAILY 11/17/18 01/08/24 History tablet) fluticasone propionate 50 1 spray intranasal DAILY PRN 12/14/21 01/08/24 History mcg/actuation nasal Congestion spray,suspension (Flonase Allergy Relief) methocarbamol 500 mg tablet 500 mg PO Q8H PRN Spasms 01/30/23 01/08/24 History gabapentin 400 mg capsule 400 mg PO TID #90 caps 08/15/23 01/08/24 Rx venlafaxine 75 mg capsule,extended 75 mg PO BID 10/06/23 01/08/24 History release 24 hr carbidopa ER 50 mg-levodopa 200 mg 1.5 tab PO TID 01/08/24 01/08/24 History tablet,extended release ondansetron 4 mg disintegrating 4 mg PO DIRECTED PRN n/v 01/08/24 01/08/24 History tablet Past Med/Surg History Problem List (Updated 01/08/24 @ 13:22 by Stanley Ledbetter DO) Acute right-sided muscle weakness (Acute) Numbness and tingling (Acute) Stroke-like symptom (Acute) Stroke-like symptom Bradykinesia Gait abnormality 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 Cognitive changes Tremor Pre-syncope Left knee pain Abnormal uterine bleeding (AUB) Polyarthralgia LEEANN (obstructive sleep apnea) Metabolic syndrome Breast mass Vertigo Parkinson disease Obesity Right hip pain Medical History History of migraine Tremor History of COVID-19 02/2023 Tubular adenoma of colon LEEANN (obstructive sleep apnea) Previous CPAP (has not used since weight loss of approximately 30-35lbs) Depression Anxiety Tinea corporis Surgical History History of anesthesia reaction Patient reports during a dental procedure in 2016, dentist said tongue was abnormally large and had to be held back by human resources office assistant during the surgery > has lost weight since, feels may no longer be an issue, nothing was reported after more recent dental procedure History of colonoscopy S/P dilation and curettage Hx of oral surgery for broken tooth S/P tubal ligation during CS History of tonsillectomy and adenoidectomy History of placement of ear tubes History of delivery x3 History of breast biopsy benign History of endometrial ablation + D&C History of arthroscopy of knee right knee History of right hip replacement Family History Mother Hearing loss Breast cancer Grandmother (Maternal) Diabetes Grandfather (Maternal) Diabetes Grandfather (Paternal) Cancer Stomach cancer Father Pulmonary embolism Other Obesity Denies family history of Ovarian cancer Prostate cancer Clotting disorder Myocardial infarction Colorectal cancer Uterine cancer Social History Smoking Status: Former smoker Tobacco Type: Cigarettes packs per day: 0.5; Cigarettes Per Day: 5+; Second Hand Exposure: No; Do You Dip or Chew Tobacco: No; Hx Alcohol Use: Yes Alcohol type: wine and hard liquor Alcohol Intake Frequency: Monthly or Less Hx Substance Use: No Preferred Language: Bulgarian Communication Ability: Effective Visual Impairment: No Limitations Hearing Ability: Normal Lithographic Artist Required: No Beliefs That Will Affect Care: None marital status: Current Living Situation: Spouse Current Living Situation Comment: lives with fiance current occupational status: employed 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 NAD. Cooperative. HEENT: Atraumatic, normocephalic. Pulm: CTAB A&P. -wheezes, -rales, -rhonchi. Symmetrical chest rise. No increased work of breathing. No respiratory distress. Cardiac: RRR, -mrg. Radial pulses intact and symmetrical. Abdominal: Nontender, nondistended, soft. BS present. CRANIAL NERVES: II: Pupils equal and reactive. Decreased acuity in all visual walsh of the RIGHT eye. III, IV, : EOM intact, no gaze preference or deviation, no nystagmus. V: diminished sensation on RIGHT V1, V2, and V3 segments compared to LEFT. VII: On admit with slight R facial asymmetry/droop improved at time of reassessment. VIII: normal hearing to speech IX, X: normal palatal elevation, no uvular deviation XI: 5/5 head turn and 5/5 shoulder shrug bilaterally XII: midline tongue protrusion MOTOR: On bedside reexamination patient does continue to have 4 -/5 right-sided ladle puller strength, 4 -/5 elbow flexion/extension, 4 -/5 shoulder flexion compared to robust 5/5 strength on the left. Hip flexion is 4+/5, easily fatigued and qualitatively decreased on the right compared to the left and with drift. Facial sensation in V1/V2/V3 are all with qualitative tingling and decreased to soft touch compared to the left side of the face. On bedside reevaluation patient continues to have right-sided numbness/tingling in V1/V2/V3. Has some ?left-sided lip droop, and tongue protrudes slightly to the left. No change in extremity strength. Seen again on reevaluation, this has normalized. Patient did pass evaluation with speech Results & Data Results & Data Vital Signs (Past 12 Hours) Vital Signs Temp Pulse Resp BP Pulse Ox O2 Del Method 01/08/24 12:01 80 01/08/24 11:36 36.8 C 92 H 18 177/111 H 97 Room Air PG Care Time/CCT Total # of Minutes Spent Total Time Spent with Patient: Total time spent is greater than 50% in coordination of care (as documented) at patient's floor/unit and/or counseling patient: Coding Level of Care Code 02561 INT INP/OBS CARE 3/75MIN Diagnoses Stroke-like symptom R29.90 Parkinson disease G20 LEEANN (obstructive sleep apnea) G47.33
[2024-01-08 12:40] LABS: INR 0.9 (0.9-1.1); Partial Thromboplastin Ratio 1.1; Partial Thromboplastin Time 29 Seconds (21-31); Prothrombin Time 10.3 Seconds (9.0-12.0)
[2024-01-08] MEDS ORDERED: ONDANSETRON INJ 2 MG/ML 2 ML VIAL IV PRN (12:48)
[2024-01-08] MEDS ORDERED: PHARMACIST DISCHARGE MED REC CONSULT PRN (12:48)
[2024-01-08] MEDS ORDERED: POLYETHYLENE (MIRALAX) 17 GM PACK PO PRN (12:48)
[2024-01-08 12:50] LABS: Alanine Aminotransferase 5 U/L (7-52); Albumin Globulin Ratio 1.8 (0.9-2); Alkaline Phosphatase 68 U/L (34-104); Anion Gap 4 (3-11); Aspartate Aminotransferase 13 U/L (13-39); BUN Creatinine Ratio 18.8 (10-20); Bilirubin,Total 0.7 mg/dl (0.2-1.0); Blood Urea Nitrogen 15 mg/dl (6-23); Calcium 8.7 mg/dl (8.6-10.3); Carbon Dioxide 29 mmol/L (21-32); Chloride 102 mmol/L (98-107); Creatinine Clr Calc Pharmacy 100.7 ml/min; Est GFR (African American) 98.9 ml/min; Est GFR (Non-African American) 85.4 ml/min; Globulin 2.2 gm/dl (2.5-4.0); Glucose 93 mg/dl (70-99(Fasting)); Sodium 135 mmol/L (136-145); Total Protein 6.2 gm/dl (6.0-8.3)
[2024-01-08 12:57] LABS: Troponin I High Sensitivity < 2.3 pg/ml (0-14)
--- NOTE | 2024-01-08 12:58 | XRay Report ---
XR chest 1V portable CLINICAL HISTORY: neuro deficit, acute stroke suspected COMPARISON STUDY: Chest radiograph August 30, 2022. FINDINGS: Lung volumes are normal. Lungs are clear. There is no pneumothorax or pleural effusion. Car diac size is normal. Mediastinal contours are normal. There is no evidence for pulmonary edema. IMPRESSION: No acute cardiopulmonary findings. ACT 112: Negative or not required by law. Electronically signed by: Jack Major M.D. 01/08/2024 12:56 PM
--- NOTE | 2024-01-08 13:39 | Magnetic Resonance Report ---
Brain MRI WITHOUT CONTRAST HISTORY: Right-sided facial numbness. Right eye blurry vision. CVA TECHNIQUE: Multiplanar multisequence MRI of the brain was performed without the use of contrast. COMPARISON STUDY: None. FINDINGS: There are no areas of restricted diffusion to suggest acute infarction. The midline structu res are intact. The paranasal sinuses are clear. The mastoid air cells are clear. The ventricles and sulci are within normal limits for age. There is no mass, hematoma, midline shift. The major vascular flow-voids at the skull base are well maintained. Right-sided persistent trigeminal artery again not ed. The orbits are unremarkable. Stable minimal microvascular ischemic change again noted. IMPRESSION: No significant change compared to the prior study. No acute intracranial abnormality. ACT 112: Negative or not required by law. Electronically signed by: Oliver Rosario M.D. 01/08/2024 1:38 PM
[2024-01-08] MEDS ORDERED: LABETALOL HCL IV 5 MG/ML 20ML IV PRN (14:00)
[2024-01-08] MEDS: ASPIRIN CHEW 324 MG PO STA (14:50)
[2024-01-08] MEDS: CLOPIDOGREL BISULFATE 300 MG TAB PO STA (14:57)
[2024-01-08] MEDS: CLOPIDOGREL BISULFATE 300 MG TAB PO ONE (14:57)
[2024-01-08] MEDS: ASPIRIN CHEW 324 MG PO ONE (15:01)
[2024-01-08] MEDS: ASPIRIN 300 MG SUPP PR STA (15:02)
--- NOTE | 2024-01-08 15:24 | XCELERA ---
[id number]
[2024-01-08] MEDS: SODIUM CHLORIDE 0.9% 10ML FLUSH IV STA (15:42)
[2024-01-08] MEDS: STAT IV/IM STA (15:43)
[2024-01-08] MEDS: CARBIDOPA/LEVODOPA 50/200MG EXT REL TAB PO SCH (18:01)
[2024-01-08 18:21] LABS: Appearance Urine Clear (Clear); Bilirubin Urine Negative (Negative); Blood Urine Negative (Negative); Color Urine Yellow; Glucose Urine UA Negative (Negative); Ketones Urine Negative (Negative); Leukocyte Esterase Urine Negative (Negative); Nitrite Urine Negative (Negative); Protein Urine Negative (Negative); Specific Gravity Urine 1.014 (1.000-1.030); Urobilinogen Urine Negative (Negative); pH Urine 8.5 (4.5-7.5)
[2024-01-08] MEDS: GADOBUTROL 65ML VIAL IV ONE (21:20)
[2024-01-08] MEDS: VENLAFAXINE HCL XR 75 MG CAPXR PO SCH (22:00)
[2024-01-08] MEDS: ACETAMINOPHEN 325 MG TAB PO PRN (22:38)
--- NOTE | 2024-01-09 00:08 | Magnetic Resonance Report ---
Exam(s): MRI HEAD W/WO Contrast IV Amt: 9ml gadavist EXAM: MR Head Without and With Intravenous Contrast CLINICAL HISTORY: Reason for exam: R sided weakness re-eval, per neuro. TECHNIQUE: Magnetic resonance images of the head/brain without and with intravenous contrast in multiple planes. CONTRAST: Patient received 9ml gadavist of IV contrast COMPARISON: Prior brain MRI from January 08, 2024. FINDINGS: Brain: Minimal nonspecific white matter changes. No mass. No hemorrhage. No acute infarct. The flow voids at the base of the brain are intact. There is normal enhancement of the brain parenchyma. The dural venous sinuses are patent. Dilated perivascular spaces in the right basal ganglia. 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 Tiny left choroidal fissure cyst. Ventricles: Unremarkable. No ventriculomegaly. Bones/joints: Minimal to mild facet joint arthropathy at C2-3, C3-4 and C4-5. No acute fracture. Sinuses: Unremarkable as visualized. No acute sinusitis. Mastoid air cells: A tiny amount of fluid in the mastoid air cells. No mastoid effusion. Orbits: Unremarkable as visualized. IMPRESSION: No evidence of acute intracranial pathology. Minimal nonspecific white matter changes. Electronically signed by: Digna Alvarez MD 01/09/24 00:07 AM
[2024-01-09 06:24] LABS: Basophils # (auto) 0.04 K/uL (0.00-0.20); Basophils % (auto) 0.6 %; Eosinophils # (auto) 0.19 K/uL (0.00-0.50); Hemoglobin 15.2 g/dl (12.0-16.0); Immature Granulocytes # (auto) 0.01 K/uL (0.01-0.20); Immature Granulocytes % (auto) 0.2 %; Lymphocytes % (auto) 36.9 %; Mean Corpuscular Hemoglobin 31.2 pg (25.0-34.0); Mean Corpuscular Hgb Conc 33.8 g/dL (32.0-36.0); Mean Corpuscular Volume 92.4 fL (80.0-100.0); Mean Platelet Volume 9.2 fL (9.4-12.4); Monocytes # (auto) 0.65 K/uL (0.11-0.59); Monocytes % (auto) 10.4 %; Neutrophils # (auto) 3.05 K/uL (1.40-6.50); Neutrophils % (auto) 48.9 %; Platelet Count 250 K/uL (130-400); RDW Coefficient of Variation 11.9 % (11.5-14.5); RDW Standard Deviation 40.4 fL (36.4-46.3); Red Blood Count 4.87 M/uL (4.20-5.40); White Blood Count 6.24 K/ul (4.8-10.8)
[2024-01-09 06:56] LABS: BUN Creatinine Ratio 16.7 (10-20); Calcium 8.4 mg/dl (8.6-10.3); Chol HDL Ratio 3.1 (0-5); Creatinine Clr Calc Pharmacy 91.8 ml/min; Est GFR (African American) 93.3 ml/min; Est GFR (Non-African American) 80.5 ml/min
[2024-01-09 07:18] LABS: Estimated Average Glucose 111 mg/dl; Hemoglobin A1C 5.5 % (4.5-5.6)
[2024-01-09 07:42] VITALS: RESP 18
[2024-01-09] MEDS: ATORVASTATIN 40 MG TAB PO SCH (09:00)
[2024-01-09] MEDS: ASPIRIN 81 MG ECTAB PO SCH (09:00)
[2024-01-09] MEDS: CLOPIDOGREL BISULFATE 75 MG TAB PO SCH (09:01)
--- NOTE | 2024-01-09 09:28 | Neurology Consultation ---
Date of Consultation January 09, 2024 Assessment & Plan (1) Stroke-like symptom: (2) Complicated migraine: (3) Parkinson disease: Plan 53-year-old female presenting with strokelike episode characterized by right facial numbness and tingling, right eye blurry vision, heaviness of the right upper limb, followed by mild to moderate headache, resolving within a few hours. She has had an unremarkable stroke evaluation including CT of the head, CTA of the head and neck, and brain MRI x 2. She does endorse a history of migraine and has been experiencing more frequent mild to moderate headaches over the past few months. Although her current presentation was certainly worrisome for stroke or TIA, complicated migraine is also possible, if not probable at this point in time. She does not appear to have any significant cardiovascular risk factors. 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 I agree with dual antiplatelet therapy as prescribed for the time being. Would continue with aspirin and Plavix together for 3 weeks, followed by discontinuation of Plavix. Would continue with aspirin 81 mg daily thereafter. I do not think this patient requires high intensity statin therapy at this point in time. Her serum lipids are actually fairly normal. Her LDL this morning is 83. I think a low-dose of rosuvastatin may be more appropriate, goal LDL 70 or less. Although her blood pressure was elevated at the time of presentation, it has subsequently been normal and acceptable without need for medical intervention. Given that she has a history of migraine, has been experiencing more frequent mild to moderate headaches, and presents with an episode of possible, if not probable, complicated migraine, I would recommend starting a trial of preventative medication. For the time being, would suggest verapamil ER 120 mg at bedtime. For acute treatment, would suggest a trial of either Nurtec ODT 75 mg or Ubrelvy 100 mg, either of these medications would be taken at migraine onset. They may not be on formulary at [facility] although she could be given a prescription at time of discharge. I would not suggest making any changes to her Parkinson's management at this time, may continue with carbidopa levodopa as ordered. She should follow-up with [facility] neurology in 2 to 3 weeks, she has seen Ariella Sanchez PA-C, and Dr. Barnes. Please call with any questions. 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 She presented to the emergency department late yesterday morning for further assessment of acute onset numbness and tingling of the right half of the face, associated blurry vision involving the right eye, and a feeling of heaviness affecting the right upper limb, followed by a low-grade headache. She did not experience any difficulty standing or walking, or any difficulty with speech. Her symptoms began improving during her assessment in the emergency department. She had an unremarkable CTA of the head and neck, CT of the head, and brain MRI. No evidence of acute stroke or hemorrhage. There is minimal microvascular ischemic change. She did have a telestroke consultation. TNKase was not administered. I had discussed her case with Dr. Brennan yesterday. Given that she was still felt to have a subtle facial droop at that time, a repeat brain MRI was recommended and has been completed. This study is also negative for acute or subacute process, no significant change from the previous brain MRI. I did independently review these images. No evidence of restricted diffusion in the brainstem, cerebral hemispheres, or elsewhere. No evidence of hemorrhage or hemosiderin deposition. There is a small focus of increased T2/FLAIR hyperintensity along the right lateral ventricle likely due to chronic microvascular ischemic change. There is no hydrocephalus. There is no significant atrophy. There were no abnormalities after administration of gadolinium. She has had a transthoracic echo cardiogram as well. No significant abnormalities, normal left ventricular systolic function, no regional wall motion abnormalities, no interatrial shunt with injection of contrast, normal left atrial size. An electrocardiogram has revealed a normal sinus rhythm. She does not take aspirin or other blood thinners. She has not been on a statin. She does not have a known history of diabetes mellitus. She is a non-smoker. A recent lipid panel is within normal range, triglycerides 111, cholesterol 155, LDL 83, HDL 50. A hypercoagulable panel is pending. Upon further questioning, the patient does endorse a history of episodic migraine as a young adult. She does not recall experiencing a migrainous aura with her headaches in the past. She does recall experiencing migraine associated nausea, light sensitivity. She does report that she has been experiencing low-grade headaches more frequently over the past few months, several episodes per week, she will take Excedrin when these headaches are more severe. She is currently not prescribed anything specific for migraine prevention. She has been taking gabapentin to address chronic lumbar radiculopathy. She has had some lumbar spine injections with Dr. Sotomayor which have been helpful and she plans to potentially taper off gabapentin. Allergies Allergy/AdvReac Type Severity Reaction Status Date / Time amoxicillin Allergy Unknown Rash Verified 11/20/23 08:36 morphine AdvReac Unknown N/V Verified 11/20/23 08:36 Home Medications Medication Instructions Recorded Confirmed Type multivitamin (Daily Multi-Vitamin 1 tab PO DAILY 11/17/18 01/08/24 History tablet) fluticasone propionate 50 1 spray intranasal DAILY PRN 12/14/21 01/08/24 History mcg/actuation nasal Congestion spray,suspension (Flonase Allergy Relief) methocarbamol 500 mg tablet 500 mg PO Q8H PRN Spasms 01/30/23 01/08/24 History gabapentin 400 mg capsule 400 mg PO TID #90 caps 08/15/23 01/08/24 Rx venlafaxine 75 mg capsule,extended 150 mg PO HS 10/06/23 01/08/24 History release 24 hr carbidopa ER 50 mg-levodopa 200 mg 1.5 tab PO TID 01/08/24 01/08/24 History tablet,extended release ondansetron 4 mg disintegrating 4 mg PO DIRECTED PRN n/v 01/08/24 01/08/24 History tablet Patient History Medical History History of migraine Tremor History of COVID-19 02/2023 Tubular adenoma of colon LEEANN (obstructive sleep apnea) Previous CPAP (has not used since weight loss of approximately 30-35lbs) Depression Anxiety Tinea corporis Surgical History History of anesthesia reaction Patient reports during a dental procedure in 2015, dentist said tongue was abnormally large and had to be held back by botany laboratory assistant during the surgery > has lost weight since, feels may no longer be an issue, nothing was reported after more recent dental procedure History of colonoscopy S/P dilation and curettage Hx of oral surgery for broken tooth S/P tubal ligation during CS History of tonsillectomy and adenoidectomy History of placement of ear tubes History of delivery x3 History of breast biopsy benign History of endometrial ablation + D&C History of arthroscopy of knee right knee History of right hip replacement Family History Mother Hearing loss Breast cancer Grandmother (Maternal) Diabetes Grandfather (Maternal) Diabetes Grandfather (Paternal) Cancer Stomach cancer Father Pulmonary embolism Other Obesity Denies family history of Ovarian cancer Prostate cancer Clotting disorder Myocardial infarction Colorectal cancer Uterine cancer Social History Smoking Status: Former smoker Tobacco Type: Cigarettes packs per day: 0.5; Cigarettes Per Day: 5+; Second Hand Exposure: No; Do You Dip or Chew Tobacco: No; Tobacco Cessation Education Requested by Patient: No Hx Alcohol Use: No Hx Substance Use: No Preferred Language: [place] Communication Ability: Effective Visual Impairment: No Limitations Hearing Ability: Normal Die Reamer Required: No Beliefs That Will Affect Care: None marital status: Current Living Situation: Spouse and Family Current Living Situation Comment: brother in-law and mother in-law current occupational status: employed 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 many Children do You have: 3 Other Information That Helps Us Care for You: No Feels Safe at Home: Yes Safety Concerns: Feels Safe At This Time Childhood Exposure to Second-Hand Smoke: No Diet: regular caffeine: Yes during the past year weight has: remained stable Dental Care, Regularly: Yes Physical Activity Frequency: 3-4 Times per Week Seatbelt Use: always Sunscreen Use: Yes Assistive Devices: None Review of Systems Constitutional: no fever and no chills Eyes: no blind spots and no diplopia Ear, Nose, Mouth, Throat: no hearing loss Respiratory: no cough and no dyspnea Cardiovascular: no chest pain and no palpitations Gastrointestinal: no nausea, no vomiting and no constipation Genitourinary: no urinary incontinence Musculoskeletal: + back pain; no myalgia and no muscle we akness Integumentary: no rash and no lesions Neurologic: as per Subjective / HPI Psychiatric: no depression, no anxiety and no hallucinations Hematologic / Lymphatic: no easy bleeding and no easy bruising Exam (Neuro) Constitutional: well developed and well nourished; no acute distress Eyes: normal visual walsh by confrontation, PERRL and EOM intact bilaterally; no nystagmus Neurologic: Oriented to:: Person, Place and Time Memory: Short Term Intact and Remote Intact Attention: Span Intact and Concentration Intact Speech Fluency: negative Dysarthria or Dysfluency Speech Aphasia: negative Aphasia Fund of Knowledge: Current Events, Past History and Vocabulary Cranial Nerves: Normal II, III, IV, , V, VII (Questionable flattening of the right nasolabial fold), VIII, IX, X, XI and XII Motor Strength: Normal Lower Extremities and Normal Upper Extremities; negative Pronator Drift or Hemiparesis Motor Tone: Normal Lower Extremities and Normal Upper Extremities Muscle Bulk/Involuntary Movements: Pill Rolling Tremor Laterality: Right Sensation: Light Touch Intact, Pain/Temperature Intact and Proprioception Intact Coordination: Normal; negative Dysdiadochokinesia, Finger-Nose Abnormal or Heel- Kee Abnormal Deep Tendon Reflexes: Rt Triceps: 2+, Lt Triceps: 2+, Rt Biceps: 2+, Lt Biceps: 2+, Rt Brachioradialis: 2+, Lt Brachioradialis: 2+, Rt Patellar: 2+, Lt Patellar: 2+, Rt Ankle: 2+ and Lt Ankle: 2+ Special Tests: negative Babinski Present Details: Decreased arm swing on the right noted with ambulation. No bradykinesia or rigidity. Results & Data Vital Signs (Past 12 Hours) Vital Signs Temp Pulse Pulse Resp BP Pulse Ox O2 Del Method 01/09/24 07:48 78 01/09/24 07:41 36.5 C 71 18 134/88 91 Room Air 01/09/24 02:59 36.5 C 70 20 126/83 96 Room Air 01/09/24 00:49 71 01/08/24 23:07 36.7 C 69 130/81 94 Room Air Laboratory Results WBC 6.24, hemoglobin 15.2, hematocrit 45.0, MCV 92.4, platelet count 250, sodium 139, potassium 4.0, BUN 14, creatinine 0.84, glucose 90, hemoglobin A1c 5.5, calcium 8.4, magnesium 2.0, AST 13, ALT 5, triglycerides 11, cholesterol 155, LDL 83, HDL 50 Coding Level of Care Code 78464 INT INP/OBS CARE MIN Diagnoses Stroke-like symptom R29.90 Complicated migraine G43.109 Parkinson disease G20 Time Spent (min) 90 Comment Total time includes patient contact, chart review, counseling, note preparation
--- NOTE | 2024-01-09 09:51 | Pharmacy Report ---
- Date of Service January 09, 2024 - Pharmacy CVA/TIA Medication Review Medications to Prevent Stroke handout has been added to the patients discharge packet. Antiplatelet(s) * aspirin 81mg PO daily, clopidogrel 75mg PO daily (X 21 days, followed by ASA 81mg PO daily thereafter) Cholesterol * High intensity statin: atorvastatin 80 mg daily (LDL-83mg/dl, low dose rosuvastatin recommended by neurology for goal LDL </=70) DVT Prophylaxis * Enoxaparin SQ Therapeutic Anticoagulation * No history of Afib/Aflutter noted Type 2 Diabetes * Patient does not have T2DM
[2024-01-09 11:08] VITALS: BP 122/80; PULSE 81; TEMP 97.9; O2SAT 95
--- NOTE | 2024-01-09 13:20 | Discharge Summary ---
Discharge Summary Date of Service date of admission - January 08, 2024 date of discharge - January 09, 2024 Principal Dx & Hospital Course #1 = Principal Diagnosis (1) Complicated migraine: (2) Acute right-sided muscle weakness: resolved stroke work-up completely normal including 2 MRI studies of the brain (neither showed acute or subacute CVA) neurological symptoms were likely 2nd to complicated migraine - see #1 above (3) Stroke-like symptom: resolved, 2nd to #[address] Sincere Dunne from [facility] did advise, however, use of antiplatelet agents moving forward recommendations - 1. aspirin 81mg daily - likely indefinitely 2. plavix 75mg daily x 21 days then stop (4) Parkinson disease: continue carbidopa-levodopa TID as previous Notes For Next Care Provider Medication Changes From Visit 1. aspirin 81mg daily - indefinitely 2. plavix 75mg daily x 21 days then stop 3. verapamil ER 120mg daily for headache prevention 4. nurtec ODT prn migraines Admission HPI Per Admitting Provider 53yo F with a past history of parkinsonism on carbidopa-levodopa, ingris, allergic rhinitisPresented with abrupt onset of right sided facial tingling, right upper extremity weakness, and some right lower extremity weakness different from her normal baseline which started suddenly at approximately 11 AM. She presented urgently to the ER for stroke evaluation. Per signout patient received aspirin/Plavix and telestroke was consulted. CThead was normal. CTA head/neck were without high-grade stenosis/occlusion. Initial NIHSS was 5. On review by telestroke thrombolysis was not recommended due to mild and improving symptoms. 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 Hip flexion is 4+/5, easily fatigued and qualitatively decreased on the right compared to the left and with drift. Facial sensation in V1/V2/V3 are all with qualitative tingling and decreased to soft touch compared to the left side of the face. Denies prior history of strokes Does have a history of parkinsonism and endorses some baseline right sided weakness compared to the left, but notes that current strength and sensory change is much different than her normal baseline She has not had any recent medication adjustments, did take her Sinemet this morning. She has taken gabapentin for back pain and follows with Dr. Sotomayor for injections, she has had no recent issues and has had no pain whatsoever in the last few days. In the past she has left lower extremity tingling which completely resolved following back injections and which have not been present in the preceding week. Denies chest pain or chest pressure, denies palpitations Denies fever, chills, sweats. Denies lightheadedness, dizziness, syncope, presyncope Has had intermittent headaches without aura in the last few weeks. Endorses mild frontal headache at time of assessment. No photo or phono sensitivity Endorses vision change in her right eye. Right eye is with acute blurriness in all visual quadrants. EOM is intact without pain, entrapment, or nystagmus. Pupils are reactive to light Medical History: Reviewed Medications: Reviewed Surgical History: Reviewed Family history: Reviewed Allergies: Reviewed Social History: Denies recent tobacco use, past history of intermittent social tobacco use many years ago. No recent alcohol use. No recreational drug use Code Status: Full code Discharge Exam gen - NAD, pleasant face - no droop, sensation intact all portions of face neck - no JVD mouth - MMM heart - RRR, s1 s2, no murmur lungs - CTA b/l abd - soft NT ND BS+ ext - no edema, pulses 2+ b/l neuro - strength 5/5 x 4 exts, speech fluent/clear, sensation intact to light touch on face, upper exts, and lower exts Discharge Plan Discharge Items Patient Disposition: Home - Self-Care Reason For Visit: RIGHT ARM WEAKNESS, FACIAL SENSATION CHANGE Discharge Diagnosis: 1. suspected complex/complicated ("hemiplegic") migraine - improved 2. right facial numbness, right sided weakness - resolved; likely due to #1; MRI brain negative x 2 for stroke Activity: As commented below Activity Comment: take it easy for 2-3 days, then resume normal activities thereafter Driving/Machine Use: Resume 1 day after discharge Non-emergency contact: Primary Care Provider and Neurologist Call non-emergency contact if: you have any medication questions and your symptoms worsen Follow-up/Referrals: Sincere Dunne MD [Physician] - (3-4 weeks; dx - migraines, hospital follow-up ) Eduin Ortiz MD [Primary Care Provider] - (1 week) Diet: Regular Addtl Attending Provider Instructions: Mrs David, You were hospitalized due to having right-sided facial numbness and right-sided weakness. There was initial concern for a stroke. MRI brain x 2 were negative for stroke, tumor, bleeding, etc. CTA scans of the head & neck showed normal arteries (no blockages, narrowing, etc). Echocardiogram of your heart showed normal heart function. Your telemetry heart monitoring was also normal. In the midst of your symptoms you also had a headache. Fortunately your headache is improving and your other neurological symptoms have resolved. Dr Sincere Dunne from [facility] saw you in consult and felt that your symptoms were likely due to a complex/complicated/hemiplegic migraine (see handout). You had mentioned to Dr Dunne that you had been having frequent headaches of late. A complex migraine can mimic a stroke. Recommendations from neurology - 1. Take the following - * clopidogrel 75mg once daily x 20 days, first dose TOMORROW 01/09; after the bottle finishes you are done with this medicine * aspirin vcft-zoe-hmxvzbs 81mg once daily - likely indefinitely 2. For headache prevention - * verapamil SR 120mg once daily at bedtime; this is a blood pressure medicine that is often used for headache prevention * you can continue the once daily magnesium supplement you had been taking 3. For headache treatment (to get the headache to go away) - * Nurtec ODT - 75mg once daily as needed, maximum 1 dose in a 24-hour period * if you have nausea or vomiting with your headache you can take ondansetron ODT 4mg every 6 hours as needed * xtgm-dwe-qkjzeye tylenol 1000mg every 8 hours as needed, maximum 3000mg in 24 hours * in a few weeks once the clopidogrel is finished you can also take vwct-iqi-pkhjgyo motrin or naprosyn sparingly for bad headaches 4. For a few weeks please keep a headache "diary" to try & determine if there are any specific foods or other environmental triggers leading to your headaches Follow-up - see separate section Return to [facility] if - * you have fevers over 100 degrees * you have severe, intractable headache(s) despite taking the medicines mentioned above * you develop recurrent numbness, tingling, or weakness of any limb; difficulty speaking or swallowing; severe dizziness/vertigo; etc. * any other concerns It was our pleasure to care for you! -Dr Luong Pending Studies at Discharge: Yes Studies:: labs for genetic/inherited forms of blood clotting Stand-Alone Forms: My [facility], Smoking Cessation, Medications to Prevent Stroke Medications and DC Order Prescriptions: New clopidogrel 75 mg Tablet 75 mg PO QAM 20 Days Qty: 20 0RF aspirin 81 mg Tablet,Delayed Release (Dr/Ec) 81 mg PO QAM Qty: 90 0RF Rx Instructions: purchase jiar-fhz-qsaousi verapamil 120 mg capsule,ext rel. pellets 24 hr 120 mg PO HS Qty: 30 2RF Rx Instructions: for headache prevention Nurtec ODT 75 mg tablet,disintegrating 75 mg PO DAILY PRN (Reason: migraine headache) Qty: 8 1RF Rx Instructions: max 1 tablet in a 24-hour period. Continued methocarbamol 500 mg tablet 500 mg PO Q8H PRN (Reason: Spasms) Patient Comments: using as needed because script is low Rx Instructions: last picked up July 2023 venlafaxine 75 mg capsule,extended release 24hr 150 mg PO HS gabapentin 400 mg capsule 400 mg PO TID Qty: 90 2RF Rx Instructions: last picked up in october multivitamin [Daily Multi-Vitamin] tablet 1 tab PO DAILY Rx Instructions: otc unable to verify fluticasone propionate [Flonase Allergy Relief] 50 mcg/actuation spray,suspension 1 spray intranasal DAILY PRN (Reason: Congestion) Rx Instructions: not on file with pharmacy administer into each nostril carbidopa-levodopa 50-200 mg tablet extended release 1.5 tab PO TID Rx Instructions: original: 1 tab po QID per pharmacy 1 and 1/2 tabs po TID Changed ondansetron 4 mg tablet,disintegrating 4 mg PO Q6H PRN (Reason: nausea/vomiting) Qty: 10 0RF Discharge Orders: Discharge Order (Routine); Ordered 01/09/24 Ordered By: Eleno Luong Admission Data Admit Date/Time: 01/08/24 13:47 Attending Provider: Eleno Luong Admit Provider: Israel Brennan Primary Care Provider: Eduin Ortiz Other Providers: Israel Brennan; Sincere Dunne Other Interventions: Discharge Summary Assessment (RN) Last Done: 01/09/24 13:23 Hospital Stay Data Consultations [facility] - Dr Sincere Dunne Procedures Performed Echocardiogram - Diagnostic Imagining Performed Chest X-Ray 01/08/24 11:38 XR chest 1V portable CLINICAL HISTORY: neuro deficit, acute stroke suspected COMPARISON STUDY: Chest radiograph August 30, 2022. FINDINGS: Lung volumes are normal. Lungs are clear. There is no pneumothorax or pleural effusion. Cardiac size is normal. Mediastinal contours are normal. There is no evidence for pulmonary edema. IMPRESSION: No acute cardiopulmonary findings. ACT 112: Negative or not required by law. Electronically signed by: Jack Major M.D. 01/08/2024 12:[address] 01/08/24 11:38 CT OF THE HEAD WITHOUT CONTRAST CLINICAL HISTORY: neuro deficit, acute stroke suspected. Right-sided weakness. COMPARISON STUDY: MRI of the brain November 15, 2022. Head CT August 25, 2023. TECHNIQUE: Helical axial images of the head were obtained without IV contrast. Automated exposure control was utilized for the study. A dose lowering technique was utilized adhering to the principles of ALARA. FINDINGS: No acute intracranial hemorrhage, midline shift or mass effect is present. The ventricular system is unremarkable. The basal cisterns are patent. No extra-axial collections are present. There are no findings to suggest acute dural sinus thrombosis or acute territorial infarct. No significant calvarial abnormalities are present. Visualized portions of the sinuses and mastoid air cells are clear. IMPRESSION: No acute intracranial findings. ACT 112: Negative or not required by law. Electronically signed by: Jack Major M.D. 01/08/2024 11:49 AM Head CTA 01/08/24 11:38 HEAD CTA HISTORY: neuro deficit, acute stroke suspected TECHNIQUE: Multiaxial CT images of the head were performed both before and after the intravenous administration of contrast to evaluate the major cerebral vessels. 3D/MIP images were also obtained. Sagittal and coronal reformats were reviewed. A dose lowering technique was utilized adhering to the principles of ALARA. COMPARISON: Head CT 08/25/23. FINDINGS: There is no mass, hematoma, midline shift, or acute infarct. Visualized intracranial internal carotid arteries, distal vertebral arteries, and basilar artery are widely patent. There is no significant stenosis, occlusion, or aneurysm seen within the bilateral ACAs, MCAs, or slab worker. The major dural venous sinuses are patent. 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 This is considered to be a normal variant. IMPRESSION: No significant stenosis, occlusion, or aneurysm within the [place]. ACT 112: Negative or not required by law. Electronically signed by: Oliver Rosario M.D. 01/08/2024 12:23 PM Neck CTA 01/08/24 11:38 CT angio neck with con CLINICAL HISTORY: 53 years-old Female with neuro deficit, acute stroke suspected. Acute strokelike symptoms COMPARISON STUDY: Head CT and CTA had studies of same TECHNIQUE: Following the IV administration of 120 mL of Optiray, CT angiogram of the neck was performed from the aortic arch to the skull base. Images are reviewed in the axial, sagittal, and coronal planes. 3-D MIPS images are created and assessed. IV contrast was administered without complication. All measurements were calculated based on NASCET criteria. A dose lowering technique was utilized adhering to the principles of ALARA. FINDINGS: Patent carotid and vertebral arteries. 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 No aneurysm, dissection, high-grade stenosis or arterial occlusion. Lung apices are clear. No pneumothorax. Unremarkable soft tissues. No lymphadenopathy or acute fracture. IMPRESSION: 1. No aneurysm, dissection, high-grade stenosis or arterial occlusion. 2. 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 ACT 112: Negative or not required by law. The above report was generated using voice recognition software. It may contain grammatical, syntax or spelling errors. Electronically signed by: Selvin Peres M.D. 01/08/2024 12:18 PM Brain MRI 01/08/24 12:22 Brain MRI WITHOUT CONTRAST HISTORY: Right-sided facial numbness. Right eye blurry vision. CVA TECHNIQUE: Multiplanar multisequence MRI of the brain was performed without the use of contrast. COMPARISON STUDY: None. FINDINGS: There are no areas of restricted diffusion to suggest acute infarction. The midline structures are intact. The paranasal sinuses are clear. The mastoid air cells are clear. The ventricles and sulci are within normal limits for age. There is no mass, hematoma, midline shift. The major vascular flow-voids at the skull base are well maintained. Right-sided persistent trigeminal artery again noted. The orbits are unremarkable. Stable minimal microvascular ischemic change again noted. IMPRESSION: No significant change compared to the prior study. No acute intracranial abnormality. ACT 112: Negative or not required by law. Electronically signed by: Oliver Rosario M.D. 01/08/2024 1:38 PM Brain MRI 01/08/24 21:00 Exam(s): MRI HEAD W/WO Contrast IV Amt: 9ml gadavist EXAM: MR Head Without and With Intravenous Contrast CLINICAL HISTORY: Reason for exam: R sided weakness re-eval, per neuro. TECHNIQUE: Magnetic resonance images of the head/brain without and with intravenous contrast in multiple planes. CONTRAST: Patient received 9ml gadavist of IV contrast COMPARISON: Prior brain MRI from January 08, 2024. FINDINGS: Brain: Minimal nonspecific white matter changes. No mass. No hemorrhage. No acute infarct. The flow voids at the base of the brain are intact. There is normal enhancement of the brain parenchyma. The dural venous sinuses are patent. Dilated perivascular spaces in the right basal ganglia. 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 Tiny left choroidal fissure cyst. Ventricles: Unremarkable. No ventriculomegaly. Bones/joints: Minimal to mild facet joint arthropathy at C2-3, C3-4 and C4-5. No acute fracture. Sinuses: Unremarkable as visualized. No acute sinusitis. Mastoid air cells: A tiny amount of fluid in the mastoid air cells. No mastoid effusion. Orbits: Unremarkable as visualized. IMPRESSION: No evidence of acute intracranial pathology. Minimal nonspecific white matter changes. Electronically signed by: Digna Alvarez MD 01/09/24 00:07 AM Pending Results Patient Have Any Pending Studies at Discharge: Yes Discharge Instructions Given to Patient (Per Discharging Provider) Mrs Hernandez, Bar were hospitalized due to having right-sided facial numbness and right-sided weakness. There was initial concern for a stroke. MRI brain x 2 were negative for stroke, tumor, bleeding, etc. CTA scans of the head & neck showed normal arteries (no blockages, narrowing, etc). Echocardiogram of your heart showed normal heart function. Your telemetry heart monitoring was also normal. In the midst of your symptoms you also had a headache. Fortunately your headache is improving and your other neurological symptoms have resolved. Dr Sincere Dunne from [facility] saw you in consult and felt that your symptoms were likely due to a complex/complicated/hemiplegic migraine (see handout). You had mentioned to Dr Dunne that you had been having frequent headaches of late. A complex migraine can mimic a stroke. Recommendations from neurology - 1. Take the following - * clopidogrel 75mg once daily x 20 days, first dose TOMORROW 01/09; after the bottle finishes you are done with this medicine * aspirin njkh-hau-tlrjbbn 81mg once daily - likely indefinitely 2. For headache prevention - * verapamil SR 120mg once daily at bedtime; this is a blood pressure medicine that is often used for headache prevention * you can continue the once daily magnesium supplement you had been taking 3. For headache treatment (to get the headache to go away) - * Nurtec ODT - 75mg once daily as needed, maximum 1 dose in a 24-hour period * if you have nausea or vomiting with your headache you can take ondansetron ODT 4mg every 6 hours as needed * rcpx-box-lqlgfts tylenol 1000mg every 8 hours as needed, maximum 3000mg in 24 hours * in a few weeks once the clopidogrel is finished you can also take oshy-ruu-xfhxzee motrin or naprosyn sparingly for bad headaches 4. For a few weeks please keep a headache "diary" to try & determine if there are any specific foods or other environmental triggers leading to your headaches Follow-up - see separate section Return to [facility] if - * you have fevers over 100 degrees * you have severe, intractable headache(s) despite taking the medicines mentioned above * you develop recurrent numbness, tingling, or weakness of any limb; difficulty speaking or swallowing; severe dizziness/vertigo; etc. * any other concerns It was our pleasure to care for you! -Dr Luong Total Time Total Time Spent Total Time Spent (In Minutes): 45 Coding Level of Care Code 53305 INP/OBS DISCH >30 MIN Diagnoses Complicated migraine G43.109 Acute right-sided muscle weakness M62.81 Stroke-like symptom R29.90 Parkinson disease G20
[2024-01-09] MEDS: STROKE PATIENT DISCHARGE STA (13:41)
--- NOTE | 2024-01-09 15:21 | Electrocardiogram Report ---
Test Reason : Blood Pressure : */* mmHG Vent. Rate : 67 BPM Atrial Rate : 67 BPM P-R Int : 152 ms QRS Dur : 88 ms QT Int : 394 ms P-R-T Axes : 38 53 53 degrees QTcB Int : 416 ms Normal sinus rhythm Normal ECG When compared with ECG of 21-Aug-2023 11:29, No significant change was found Confirmed by Stanley Taylor ([id number]) on 01/09/2024 3:21:30 PM Referred By: REFERRED SELF Confirmed By: Stanley Taylor
[2024-01-09] MEDS ORDERED: ENOXAPARIN INJ 40 MG/0.4 ML SYR SQ SCH (21:00)
--- NOTE | 2024-01-12 09:54 | Pharmacy Report ---
Pharmacist Stroke Counseling - Date of Service January 12, 2024 - Scope: Pharmacy has been consulted to provide medication discharge counseling for this patient admitted with transient ischemic attack as per the Pharmacist Discharge Counseling for Stroke Patients Protocol. - Medications on Discharge: Home Medications Medication Instructions Recorded Confirmed multivitamin (Daily Multi-Vitamin 1 tab PO DAILY 11/17/18 01/08/24 tablet) fluticasone propionate 50 1 spray intranasal DAILY PRN 12/14/21 01/08/24 mcg/actuation nasal Congestion spray,suspension (Flonase Allergy Relief) methocarbamol 500 mg tablet 500 mg PO Q8H PRN Spasms 01/30/23 01/08/24 venlafaxine 75 mg capsule,extended 150 mg PO HS 10/06/23 01/08/24 release 24 hr carbidopa ER 50 mg-levodopa 200 mg 1.5 tab PO TID 01/08/24 01/08/24 tablet,extended release New Rx's Medication Instructions Recorded gabapentin 400 mg capsule 400 mg PO TID #90 caps 08/15/23 aspirin 81 mg tablet,delayed 81 mg PO QAM #90 tabs 01/09/24 release clopidogrel 75 mg tablet 75 mg PO QAM 20 days #20 tabs 01/09/24 ondansetron 4 mg disintegrating 4 mg PO Q6H PRN nausea/vomiting 01/09/24 tablet #10 tabs rimegepant 75 mg disintegrating 75 mg PO DAILY PRN migraine 01/09/24 tablet (Nurtec ODT) headache #8 tabs verapamil 120 mg 24 hr 120 mg PO HS #30 caps 01/09/24 capsule,extended release - Action: The above medications, specifically ones for stroke treatment/prophylaxis, have been reviewed in detail with the patient and/or patient collections representative(s) prior to discharge. This includes indication, common adverse reactions, drug interactions, and medication administration. Medication counseling has been employed using the teach-back method to ensure understanding. - Outcome: The patient and/or patient collections representative(s) have demonstrated understanding of the medications. Additional comments: Spoke with patient regarding side effects of clopidogrel. Thank you for allowing pharmacy to be involved in the care of this patient. Please call [phone] with any additional questions
== END 2024-01-09 14:03 | disposition home or self-care (01) | DRG 103 ==
LOC: ED 11:31 → SUATTDRO 13:47 → 2E 13:47

== ENCOUNTER 2024-02-23 12:22 | Inpatient (IN) ==
--- NOTE | 2024-02-23 12:54 | Emergency Department Note ---
Impression & Plan Stroke-like symptom ED Provider Note NAME: YESY VALLE AGE: 53 SEX: F : 1970 ARRIVES VIA: Walk-In INFORMANT: Patient, the patient's significant other ED PROVIDER(S): Stanley Ledbetter DO CHIEF COMPLAINT: Strokelike symptoms HPI: The patient is a 53-year-old female who presented to the emergency department for an evaluation of strokelike symptoms. The patient started having symptoms at approximately 1215. The patient was with her significant other. She started feeling off and having right sided weakness and numbness. The patient does have a history of similar episode in December of this year. She does have a history of Parkinson's. At the last time she was here she was not felt to be a candidate for TNK. Her symptoms were rapidly improving. Ultimately she was not found to have any signs of stroke on higher neuroimaging but she did do a 21-day course of Plavix and currently takes aspirin. She does take her Parkinson medication. She denies having any recent trauma. She states she also feels off balance. ROS: See above HPI for pertinent positives & negatives. A total of 10 systems reviewed and were otherwise negative. PAST MEDICAL HISTORY: See Below PAST SURGICAL HISTORY: See Below FAMILY HISTORY: See Below SOCIAL HISTORY: See Below HOME MEDICATIONS: See Below ALLERGIES: See Below VITALS: See Below PHYSICAL EXAMINATION: GENERAL: Patient is awake alert in no acute distress patient is resting comfortably and showing no signs of anxiety EYES: The conjunctivae are clear. The pupils are round and reactive. EARS, NOSE, MOUTH AND THROAT: The nose is without any evidence of any deformity. Mucous membranes are moist. Tongue is midline. NECK: The neck is nontender and supple. RESPIRATORY: Normal respiratory effort is noted there is no evidence of wheezing rhonchi or rales CARDIOVASCULAR: Regular rate and rhythm noted there no murmurs rubs or gallops normal S1 normal S2. GASTROINTESTINAL: The abdomen is soft. Abdomen is nontender. MUSCULOSKELETAL/EXTREMITIES: There is no evidence of gross deformity full range of motion is noted in the hips and shoulders. SKIN: There is no obvious evidence of any rash. There are no petechiae, pallor or cyanosis noted. NEUROLOGIC: Patient is awake alert and oriented x3. The patient has a slight right facial droop with sparing of forehead. 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 The patient is able to hold each leg off of the bed for greater than 5 seconds. MEDICAL DECISION MAKING: The patient is a 53-year-old female who presented to the emergency department for an evaluation of strokelike symptoms. The patient had a similar episode several weeks ago. At that time no definite cause for her presentation could be identified but the patient was started on aspirin and Plavix at that time. Currently she is only taking aspirin. She is been compliant with her outpatient medication regimen. She presented to the emergency department today and was made a stroke alert because the symptoms as well as the onset of symptoms. The patient was not felt to be a candidate for TNK at her own discretion. She refused TNK even though after discussion with the telestroke neurologist he thought it may be indicated given the patient's last known well time. The patient was reevaluated multiple times. I discussed the patient's laboratory and radiographic studies with her. No large vessel occlusion was identified. I discussed her condition with the on-call [facility]ist. They have agreed to evaluate the patient in the emergency department for further management and disposition. Triage Nursing notes reviewed. Prior medical records reviewed Vital Signs: reviewed and remarkable for elevated blood pressure. Differential diagnosis: Infection, dehydration, metabolic abnormality, hypo/hyperglycemia, electrolyte disturbance, anemia, hypoxia, cardiac sources, intracerebral event, toxicologic, neurologic, as well as other pathologies. ER treatment provided: See below Diagnostics interpreted by me: ECG: EKG was obtained in the emergency department. My interpretation is normal sinus rhythm at 62 bpm. There is no ectopy segment abnormalities noted. This was compared to a tracing from January 08, 2024. No changes were noted. Cardiac Monitoring: An order was placed for continuous cardiac monitoring. The monitor shows a rate of 67 bpm with sinus rhythm. Laboratory studies: As stated above and show below. Imaging studies: See below. Radiographic imaging was reviewed by myself Consultation(s): I discussed this case with Dr. Foster who is on-call for telestroke neurology. The on-call [facility] hospitalist, Dr. Clifford was notified about the patient. He will evaluate the patient in the emergency department. 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 Cognitive changes Tremor Pre-syncope Left knee pain Abnormal uterine bleeding (AUB) Polyarthralgia Metabolic syndrome Breast mass Vertigo Obesity Right hip pain Medical History Complicated migraine Parkinson disease LEEANN (obstructive sleep apnea) History of migraine Tremor History of COVID-19 02/2023 Tubular adenoma of colon LEEANN (obstructive sleep apnea) Previous CPAP (has not used since weight loss of approximately 30-35lbs) Depression Anxiety Tinea corporis Surgical History History of anesthesia reaction Patient reports during a dental procedure in 2016, dentist said tongue was abnormally large and had to be held back by surgeon assistant during the surgery > has lost weight since, feels may no longer be an issue, nothing was reported after more recent dental procedure History of colonoscopy S/P dilation and curettage Hx of oral surgery for broken tooth S/P tubal ligation during CS History of tonsillectomy and adenoidectomy History of placement of ear tubes History of delivery x3 History of breast biopsy benign History of endometrial ablation + D&C History of arthroscopy of knee right knee History of right hip replacement Family History Mother Hearing loss Breast cancer Grandmother (Maternal) Diabetes Grandfather (Maternal) Diabetes Grandfather (Paternal) Cancer Stomach cancer Father Pulmonary embolism Other Obesity Denies family history of Ovarian cancer Prostate cancer Clotting disorder Myocardial infarction Colorectal cancer Uterine cancer Social History Smoking Status: Never smoker Tobacco Type: Cigarettes packs per day: 0.5; Cigarettes Per Day: 5+; Second Hand Exposure: No; Do You Dip or Chew Tobacco: No; Hx Alcohol Use: No Hx Substance Use: No Preferred Language: Egyptian Communication Ability: Effective Visual Impairment: No Limitations Hearing Ability: Normal Train Inspector Required: No Beliefs That Will Affect Care: None marital status: Current Living Situation: Spouse and Family Current Living Situation Comment: brother in-law and mother in-law current occupational status: employed 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 many Children do You have: 3 Feels Safe at Home: Yes Childhood Exposure to Second-Hand Smoke: No Diet: regular caffeine: Yes during the past year weight has: remained stable Dental Care, Regularly: Yes Physical Activity Frequency: 3-4 Times per Week Seatbelt Use: always Sunscreen Use: Yes Assistive Devices: None Allergies Allergies Allergy/AdvReac Type Severity Reaction Status Date / Time amoxicillin Allergy Unknown Rash Verified 11/20/23 08:36 morphine AdvReac Unknown N/V Verified 11/20/23 08:36 Home Meds Home Medications Medication Instructions Recorded Confirmed multivitamin (Daily Multi-Vitamin 1 tab PO DAILY 11/17/18 02/23/24 tablet) fluticasone propionate 50 1 spray intranasal DAILY PRN 12/14/21 02/23/24 mcg/actuation nasal Congestion spray,suspension (Flonase Allergy Relief) venlafaxine 75 mg capsule,extended 150 mg PO HS 10/06/23 02/23/24 release 24 hr carbidopa ER 50 mg-levodopa 200 mg 2 tab PO TID 01/08/24 02/23/24 tablet,extended release gabapentin 400 mg capsule 300 mg PO BID 02/23/24 02/23/24 Previous Rx's Medication Instructions Recorded aspirin 81 mg tablet,delayed 81 mg PO QAM #90 tabs 01/09/24 release ondansetron 4 mg disintegrating 4 mg PO Q6H PRN nausea/vomiting 01/09/24 tablet #10 tabs rimegepant 75 mg disintegrating 75 mg PO DAILY PRN migraine 01/09/24 tablet (Nurtec ODT) headache #8 tabs verapamil 120 mg 24 hr 120 mg PO HS #30 caps 01/09/24 capsule,extended release Results & Data (ED) Vital Signs Vital Signs - 24 hr 02/23/24 12:22 02/23/24 12:55 Temperature 36.6 C Temperature Source Oral Pulse Rate 78 67 Respiratory Rate 18 Blood Pressure 150/91 H Blood Pressure Mean 110 Pulse Oximetry 95 Oxygen Delivery Method Room Air Sepsis Recent Fever Within 48 Hours No Sepsis New/Unexplained Change in Mental Status N/A Sepsis Action Taken by Nursing No Action Required Home Medications Current Medication List: was personally reviewed by me Laboratory Data Attestation: I reviewed the patient's lab results. 02/23/24 12:44 02/23/24 12:44 Lab Results 02/23/24 02/23/24 02/23/24 Range/Units 12:44 12:47 12:52 WBC 5.63 (4.8-10.8) K/ul RBC 4.78 (4.20-5.40) M/uL Hgb 15.4 (12.0-16.0) g/dl POC Hgb 15.0 (12.0-16.0) g/dl Hct 43.5 (37.0-47.0) % POC Hct 44 (37-47) % MCV 91.0 (80.0-100.0) fL MCH 32.2 (25.0-34.0) pg MCHC 35.4 (32.0-36.0) g/dL RDW Std Deviation 40.1 (36.4-46.3) fL RDW Coeff of Domo 11.9 (11.5-14.5) % Plt Count 318 (130-400) K/uL MPV 9.3 L (9.4-12.4) fL Immature Gran % (Auto) 0.2 % Neut % (Auto) 55.7 % Lymph % (Auto) 33.4 % Amador % (Auto) 7.8 % Eos % (Auto) 1.8 % Baso % (Auto) 1.1 % Neut # (Auto) 3.14 (1.40-6.50) K/uL Lymph # (Auto) 1.88 (1.20-3.40) K/uL Amador # (Auto) 0.44 (0.11-0.59) K/uL Eos # (Auto) 0.10 (0.00-0.50) K/uL Baso # (Auto) 0.06 (0.00-0.20) K/uL Immature Gran # (Auto) 0.01 (0.01-0.20) K/uL PT 10.2 (9.0-12.0) Seconds INR 0.9 (0.9-1.1) APTT 29 (21-31) Seconds PTT Ratio 1.1 POC Sodium 140 (135-144) mmol/L Sodium 139 (136-145) mmol/L POC Potassium 4.2 (3.3-5.0) mmol/L Potassium 4.2 (3.5-5.1) mmol/L POC Chloride 100 L (101-112) mmol/L Chloride 102 (98-107) mmol/L Carbon Dioxide 30 (21-32) mmol/L POC Total CO2 28 (24-31) mmol/L Anion Gap 7 (3-11) POC Anion Gap 17.0 (16-25) mmol/L POC BUN 14 (7-18) mg/dl BUN 13 (6-23) mg/dl Creatinine 0.87 (0.6-1.2) mg/dl POC Creatinine 0.9 (0.6-1.3) mg/dl Est Cr Clr Drug Dosing 92.2 ml/min Est GFR ( Amer) 89.4 ml/min Est GFR (Non-Af Amer) 77.1 ml/min BUN/Creatinine Ratio 14.9 (10-20) Glucose 88 (70-99(Fasting)) mg/dl POC Glucose 94 (70-99) mg/dl POC Glucose (other) 88 (70-99) mg/dl Calcium 9.6 (8.6-10.3) mg/dl POC Ioniz Calcium Nel 1.20 (1.12-1.32) mmol/l Magnesium 2.1 (1.7-2.4) mg/dl Total Bilirubin 0.9 (0.2-1.0) mg/dl AST 13 (13-39) U/L ALT 3 L (7-52) U/L Alkaline Phosphatase 76 (34-104) U/L Troponin I High Sens 2.3 (0-14) pg/ml Total Protein 7.0 (6.0-8.3) gm/dl Albumin 4.4 (3.4-5.0) gm/dl Globulin 2.6 (2.5-4.0) gm/dl Albumin/Globulin Ratio 1.7 (0.9-2) Urine Color Urine Appearance (Clear) Urine pH (4.5-7.5) Ur Specific Montrose (1.000-1.030) Urine Protein (Negative) Urine Glucose (UA) (Negative) Urine Ketones (Negative) Urine Blood (Negative) Urine Nitrite (Negative) Urine Bilirubin (Negative) Urine Urobilinogen (Negative) Ur Leukocyte Esterase (Negative) 02/23/24 Range/Units Unknown WBC (4.8-10.8) K/ul RBC (4.20-5.40) M/uL Hgb (12.0-16.0) g/dl POC Hgb (12.0-16.0) g/dl Hct (37.0-47.0) % POC Hct (37-47) % MCV (80.0-100.0) fL MCH (25.0-34.0) pg MCHC (32.0-36.0) g/dL RDW Std Deviation (36.4-46.3) fL RDW Coeff of Domo (11.5-14.5) % Plt Count (130-400) K/uL MPV (9.4-12.4) fL Immature Gran % (Auto) % Neut % (Auto) % Lymph % (Auto) % Amador % (Auto) % Eos % (Auto) % Baso % (Auto) % Neut # (Auto) (1.40-6.50) K/uL Lymph # (Auto) (1.20-3.40) K/uL Amador # (Auto) (0.11-0.59) K/uL Eos # (Auto) (0.00-0.50) K/uL Baso # (Auto) (0.00-0.20) K/uL Immature Gran # (Auto) (0.01-0.20) K/uL PT (9.0-12.0) Seconds INR (0.9-1.1) APTT (21-31) Seconds PTT Ratio POC Sodium (135-144) mmol/L Sodium (136-145) mmol/L POC Potassium (3.3-5.0) mmol/L Potassium (3.5-5.1) mmol/L POC Chloride (101-112) mmol/L Chloride (98-107) mmol/L Carbon Dioxide (21-32) mmol/L POC Total CO2 (24-31) mmol/L Anion Gap (3-11) POC Anion Gap (16-25) mmol/L POC BUN (7-18) mg/dl BUN (6-23) mg/dl Creatinine (0.6-1.2) mg/dl POC Creatinine (0.6-1.3) mg/dl Est Cr Clr Drug Dosing ml/min Est GFR ( Amer) ml/min Est GFR (Non-Af Amer) ml/min BUN/Creatinine Ratio (10-20) Glucose (70-99(Fasting)) mg/dl POC Glucose (70-99) mg/dl POC Glucose (other) (70-99) mg/dl Calcium (8.6-10.3) mg/dl POC Ioniz Calcium Nel (1.12-1.32) mmol/l Magnesium (1.7-2.4) mg/dl Total Bilirubin (0.2-1.0) mg/dl AST (13-39) U/L ALT (7-52) U/L Alkaline Phosphatase (34-104) U/L Troponin I High Sens (0-14) pg/ml Total Protein (6.0-8.3) gm/dl Albumin (3.4-5.0) gm/dl Globulin (2.5-4.0) gm/dl Albumin/Globulin Ratio (0.9-2) Urine Color Yellow Urine Appearance Clear (Clear) Urine pH 6.5 (4.5-7.5) Ur Specific Mont[place] 1.018 (1.000-1.030) Urine Protein Negative (Negative) Urine Glucose (UA) Negative (Negative) Urine Ketones Negative (Negative) Urine Blood Negative (Negative) Urine Nitrite Negative (Negative) Urine Bilirubin Negative (Negative) Urine Urobilinogen Negative (Negative) Ur Leukocyte Esterase Negative (Negative) Administered Medications Discontinued Medications Clopidogrel Bisulfate (Clopidogrel Bisulfate 300 Mg Tab) 300 mg PO NOW STA Stop: 02/23/24 13:50 Last Admin: 02/23/24 13:53 Dose: 300 mg Documented By: SRDave Ioversol (Optiray 320 125ml) 119 ml IV ONCE ONE Stop: 02/23/24 12:57 Last Admin: 02/23/24 12:56 Dose: 119 ml Documented By: SANTA Imaging Data Attestation: I personally reviewed and interpreted this imaging study as follows: My Impression: 1 view chest x-ray was obtained in the emergency department. My interpretation is no free air or definite infiltrate, final report below. CT of the brain was obtained in the emergency department. My interpretation is no intracranial hemorrhage or mass effect, final report below. Radiologist's Impression: Chest X-Ray 02/23/24 12:48 XR chest 1V portable CLINICAL HISTORY: neuro deficit, acute stroke suspected TECHNIQUE: Single frontal radiograph of the chest was obtained. Comparison: Comparison is made to chest radiograph 01/08/2024 FINDINGS: No lines and tubes are seen. The cardiomediastinal silhouette is normal. The lungs are clear. No evidence of pleural effusion or pneumothorax. IMPRESSION: No acute chest disease. ACT 112: Negative or not required by law. Electronically signed by: Delfino Baeza M.D. 02/23/2024 12:[address] 02/23/24 12:48 CT head/brain wo con CLINICAL HISTORY: 53 years-old Female with neuro deficit, acute stroke suspected. Acute strokelike symptoms TECHNIQUE: Multiple axial CT images of the head were obtained without contrast. A dose lowering technique was utilized adhering to the principles of ALARA. COMPARISON: CTA head and neck of same day, brain MRI 01/08/2024 FINDINGS: No acute intracranial hemorrhage, midline shift, intracranial mass, hydrocephalus, territorial ischemia or abnormal extra-axial collection. Mild cerebral vascular calcifications. Persistent trigeminal artery again noted. Mild periventricular white matter hypodensities are again noted. The calvarium is intact. The paranasal sinuses, mastoid air cells, and middle ear cavities are clear. IMPRESSION: No acute intracranial abnormality. ACT 112: Negative or not required by law. The above report was generated using voice recognition software. It may contain grammatical, syntax or spelling errors. Electronically signed by: Selvin Peres M.D. 02/23/2024 1:29 PM Head CTA 02/23/24 12:48 CTA ANGIOGRAPHY OF THE HEAD CLINICAL HISTORY: neuro deficit, acute stroke suspected COMPARISON STUDY: Head CT, CTA of the head and MRI the brain January 08, 2024. TECHNIQUE: Helical axial images of the head were obtained following uneventful intravenous administration of 118 cc of Optiray. Sagittal and coronal reconstructions were viewed as well as maximal intensity projections on an independent 3-D workstation. Automated exposure control was utilized for the study. A dose lowering technique was utilized adhering to the principles of ALARA. FINDINGS: No acute intracranial hemorrhage, midline shift or mass effect is present. Ventricular system is normal. Basal cisterns are patent. There are no extra-axial collections. The bilateral M1, M2, A1 and A2 segments are patent. There is no intracranial aneurysm or vessel occlusion. 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 The intracranial portions of the vertebral arteries and basilar artery is diminutive on a congenital basis. No vessel occlusion within the posterior circulation is identified. IMPRESSION: No large vessel occlusion. No intracranial aneurysm. ACT 112: Negative or not required by law. Electronically signed by: Jack Major M.D. 02/23/2024 1:15 PM Neck CTA 02/23/24 12:48 CT angio neck with con CLINICAL HISTORY: neuro deficit, acute stroke suspected TECHNIQUE: CT angiography of the neck was performed following intravenous administration of iodinated contrast. Coronal and sagittal MIPS were obtained from the axial data set and were submitted for review. Automated dose lowering techniques and/or adjustment according to patient size were utilized for this examination. All measurements were calculated based on NASCET criteria. CT DOSE: 1193.25 mGy.cm Comparison: None available at the time of this dictation. FINDINGS: Lungs and soft tissues are unremarkable. CTA Neck: A 3 vessel aortic arch is shown. There is no significant atherosclerotic plaque in the aortic arch or the origins of the innominate, left common carotid, and left subclavian arteries. The common carotid, external carotid, cervical segments of the internal carotid arteries, and the cervical segments of the vertebral arteries are patent without hemodynamically significant stenosis. The vertebral arteries are codominant. IMPRESSION: No occlusion, hemodynamically significant stenosis, or dissection in the major cervical arteries. Assessment of stenosis of the internal carotid arteries is based on NASCET criteria. ACT 112: Negative or not required by law. Electronically signed by: Delfino Baeza M.D. 02/23/2024 1:06 PM Discharge Plan Visit Data Chief Complaint: TIA Symptoms Stated Complaint: TIA SYMPTOMS ED Provider: Stanley Ledbetter Discharge Problem: Stroke-like symptom Patient Disposition: Being Evaluated by Hospitalist Forms Stand Alone Forms: [facility] Prescriptions Prescriptions: No Action venlafaxine 75 mg capsule,extended release 24hr 150 mg PO HS multivitamin [Daily Multi-Vitamin] tablet 1 tab PO DAILY fluticasone propionate [Flonase Allergy Relief] 50 mcg/actuation spray,suspension 1 spray intranasal DAILY PRN (Reason: Congestion) Rx Instructions: not on file with pharmacy administer into each nostril carbidopa-levodopa 50-200 mg tablet extended release 2 tab PO TID Rx Instructions: new prescriptions 2 tablets po tid 8 am, 1pm, 6pm aspirin 81 mg Tablet,Delayed Release (Dr/Ec) 81 mg PO QAM Qty: 90 0RF Rx Instructions: purchase garp-cqu-xbbaxkh verapamil 120 mg capsule,ext rel. pellets 24 hr 120 mg PO HS Qty: 30 2RF Rx Instructions: for headache prevention Nurtec ODT 75 mg tablet,disintegrating 75 mg PO DAILY PRN (Reason: migraine headache) Qty: 8 1RF Rx Instructions: max 1 tablet in a 24-hour period. ondansetron 4 mg tablet,disintegrating 4 mg PO Q6H PRN (Reason: nausea/vomiting) Qty: 10 0RF gabapentin 400 mg capsule 300 mg PO BID Referrals Referrals: Eduin Ortiz MD [Primary Care Provider] -
[2024-02-23] MEDS: OPTIRAY 320 125ml IV ONE (12:56)
--- NOTE | 2024-02-23 13:00 | XRay Report ---
XR chest 1V portable CLINICAL HISTORY: neuro deficit, acute stroke suspected TECHNIQUE: Single frontal radiograph of the chest was obtained. Comparison: Comparison is made to chest radiograph 01/08/2024 FINDINGS: No lines and tubes are seen. The cardiomediastinal silhouette is normal. The lungs are clear. No evid ence of pleural effusion or pneumothorax. IMPRESSION: No acute chest disease. ACT 112: Negative or not required by law. Electronically signed by: Delfino Baeza M.D. 02/23/2024 12:59 PM
[2024-02-23 13:02] LABS: Basophils # (auto) 0.06 K/uL (0.00-0.20); Basophils % (auto) 1.1 %; Eosinophils % (auto) 1.8 %; Hematocrit (blood only) 43.5 % (37.0-47.0); Hemoglobin 15.4 g/dl (12.0-16.0); Immature Granulocytes # (auto) 0.01 K/uL (0.01-0.20); Immature Granulocytes % (auto) 0.2 %; Lymphocytes # (auto) 1.88 K/uL (1.20-3.40); Lymphocytes % (auto) 33.4 %; Mean Corpuscular Hemoglobin 32.2 pg (25.0-34.0); Mean Corpuscular Hgb Conc 35.4 g/dL (32.0-36.0); Mean Platelet Volume 9.3 fL (9.4-12.4); Monocytes # (auto) 0.44 K/uL (0.11-0.59); Monocytes % (auto) 7.8 %; Neutrophils # (auto) 3.14 K/uL (1.40-6.50); Neutrophils % (auto) 55.7 %; Platelet Count 318 K/uL (130-400); RDW Coefficient of Variation 11.9 % (11.5-14.5); RDW Standard Deviation 40.1 fL (36.4-46.3); Red Blood Count 4.78 M/uL (4.20-5.40); White Blood Count 5.63 K/ul (4.8-10.8)
[2024-02-23 13:05] LABS: iSTAT Creatinine 0.9 mg/dl (0.6-1.3); iSTAT Ionized Calcium 1.2 mmol/l (1.12-1.32); iSTAT Potassium 4.2 mmol/L (3.3-5.0)
--- NOTE | 2024-02-23 13:07 | CT Scan Report ---
CT angio neck with con CLINICAL HISTORY: neuro deficit, acute stroke suspected TECHNIQUE: CT angiography of the neck was performed following intravenous administration of iodinate d contrast. Coronal and sagittal MIPS were obtained from the axial data set and were submitted for re view. Automated dose lowering techniques and/or adjustment according to patient size were utilized f or this examination. All measurements were calculated based on NASCET criteria. CT DOSE: 1193.25 mGy.cm Comparison: None available at the time of this dictation. FINDINGS: Lungs and soft tissues are unremarkable. CTA Neck: A 3 vessel aortic arch is shown. There is no significant atherosclerotic plaque in the aor tic arch or the origins of the innominate, left common carotid, and left subclavian arteries. The co mmon carotid, external carotid, cervical segments of the internal carotid arteries, and the cervical segments of the vertebral arteries are patent without hemodynamically significant stenosis. The verte bral arteries are codominant. IMPRESSION: No occlusion, hemodynamically significant stenosis, or dissection in the major cervical arteries. Assessment of stenosis of the internal carotid arteries is based on NASCET criteria. ACT 112: Negative or not required by law. Electronically signed by: Delfino Baeza M.D. 02/23/2024 1:06 PM
--- NOTE | 2024-02-23 13:17 | CT Scan Report ---
CTA ANGIOGRAPHY OF THE HEAD CLINICAL HISTORY: neuro deficit, acute stroke suspected COMPARISON STUDY: Head CT, CTA of the head and MRI the brain January 08, 2024. TECHNIQUE: Helical axial images of the head were obtained following uneventful intravenous administr ation of 118 cc of Optiray. Sagittal and coronal reconstructions were viewed as well as maximal inten sity projections on an independent 3-D workstation. Automated exposure control was utilized for the study. A dose lowering technique was utilized adhering to the principles of ALARA. FINDINGS: No acute intracranial hemorrhage, midline shift or mass effect is present. Ventricular syst em is normal. Basal cisterns are patent. There are no extra-axial collections. The bilateral M1, M2, A1 and A2 segments are patent. There is no intracranial aneurysm or vessel occlusion. A persistent ri ght-sided trigeminal artery is again noted. The intracranial portions of the vertebral arteries and b asilar artery is diminutive on a congenital basis. No vessel occlusion within the posterior circulati on is identified. IMPRESSION: No large vessel occlusion. No intracranial aneurysm. ACT 112: Negative or not required by law. Electronically signed by: Jack Major M.D. 02/23/2024 1:15 PM
[2024-02-23 13:19] LABS: Albumin Globulin Ratio 1.7 (0.9-2); Albumin Level 4.4 gm/dl (3.4-5.0); BUN Creatinine Ratio 14.9 (10-20); Bilirubin,Total 0.9 mg/dl (0.2-1.0); Calcium 9.6 mg/dl (8.6-10.3); Creatinine Clr Calc Pharmacy 92.2 ml/min; Est GFR (African American) 89.4 ml/min; Est GFR (Non-African American) 77.1 ml/min; Globulin 2.6 gm/dl (2.5-4.0); Magnesium 2.1 mg/dl (1.7-2.4); Potassium 4.2 mmol/L (3.5-5.1)
[2024-02-23 13:25] LABS: Troponin I High Sensitivity 2.3 pg/ml (0-14)
--- NOTE | 2024-02-23 13:32 | CT Scan Report ---
CT head/brain wo con CLINICAL HISTORY: 53 years-old Female with neuro deficit, acute stroke suspected. Acute strokelike s ymptoms TECHNIQUE: Multiple axial CT images of the head were obtained without contrast. A dose lowering tech nique was utilized adhering to the principles of ALARA. COMPARISON: CTA head and neck of same day, brain MRI 01/08/2024 FINDINGS: No acute intracranial hemorrhage, midline shift, intracranial mass, hydrocephalus, territorial ischem ia or abnormal extra-axial collection. Mild cerebral vascular calcifications. Persistent trigeminal a rtery again noted. Mild periventricular white matter hypodensities are again noted. The calvarium is intact. The paranasal sinuses, mastoid air cells, and middle ear cavities are clear . IMPRESSION: No acute intracranial abnormality. ACT 112: Negative or not required by law. The above report was generated using voice recognition software. It may contain grammatical, syntax o r spelling errors. Electronically signed by: Selvin Peres M.D. 02/23/2024 1:29 PM
[2024-02-23 13:37] LABS: INR 0.9 (0.9-1.1); Partial Thromboplastin Ratio 1.1; Partial Thromboplastin Time 29 Seconds (21-31); Prothrombin Time 10.2 Seconds (9.0-12.0)
[2024-02-23 13:43] LABS: Appearance Urine Clear (Clear); Bilirubin Urine Negative (Negative); Blood Urine Negative (Negative); Color Urine Yellow; Glucose Urine UA Negative (Negative); Ketones Urine Negative (Negative); Leukocyte Esterase Urine Negative (Negative); Nitrite Urine Negative (Negative); Protein Urine Negative (Negative); Specific Gravity Urine 1.018 (1.000-1.030); Urobilinogen Urine Negative (Negative); pH Urine 6.5 (4.5-7.5)
[2024-02-23] MEDS: CLOPIDOGREL BISULFATE 300 MG TAB PO STA (13:53)
--- NOTE | 2024-02-23 15:44 | History & Physical Report ---
Date of Service February 23, 2024 Assessment & Plan (1) Stroke-like symptom: Plan: Right hand weakness, numbness DDx includes CVA/TIA versus complex migraine Acute onset of dysarthria, right hand numbness, right arm numbness, and some right arm and hand weakness with associated spotty vision change and lightheadedness At admitting assessment strength 5/5 bilaterally to die designer apprentice, elbow flexion. Sensation to sharp touch is qualitatively diminished in the right arm and dorsal hand compared to the left. Otherwise sensation in hands and feet is intact, and strength is symmetrical Patient does feel her symptoms were more abrupt and very different from her p rior strokelike symptoms, about 80% resolved at time of assessment. Patient reports only lingering symptom seems to be some qualitative decrease sensation of soft touch in the right hand Telestroke consulted. TNKase not recommended. Recommend continuing dual antiplatelet therapy and obtaining MRI CTA: No occlusion, hemodynamically significant stenosis, or dissection in the major cervical arteries. - CTA-H: No large vessel occlusion. No intracranial aneurysm. - CT-H: IMPRESSION: No acute intracranial abnormality. - CXR: naf Neurology consulted. (2) Complicated migraine: Plan: Continue verapamil No headache at time of assessment (3) LEEANN (obstructive sleep apnea): Plan: LEEANN Continue CPAP (4) Parkinson disease: Plan: History of parkinsonism Continue Sinemet Plan DVT prophylaxis: Lovenox Disposition: PCU for stroke evaluation CODE STATUS: Full code History of Present Illness Primary Care Provider: MD Puneet Mcmahon reports she developed numbness and tingling intermittently in her RIGHT hand sinc eyesterday which is different from her prior symptoms. Abruptly at 1215 this afternoon her R arm then was numb from the elbow down and hand paresthesia worsened, and she felt unusually dizzy.. caught her because she was off balance and also noted patients speech was off/dysarthric. Patient also had some visual changes with spots that didn't move, white clouded spots that didn't move and she isn't sure if thi swas in a particular eye or both. At time of hospital assessment she denies vision change. No headache. Past history of migraines years ago, denies any recent migraines but does have Nurtec just in case. Did use once at january which quickly resolved a headache which she felt did not progress to migraine. Weakness in the RIGHT side which resolved by time of hospitalist assessment. Pt and note most prominent symptom was loss of pinprick sensation on the right arm/hand. Denies fevers chills or sweats. No chest pain or chest pressure. No shortness of breath. No dysuria or urinary symptoms. No nausea/vomiting. Medical History: Reviewed Medications: Reviewed Surgical History: Reviewed Family history: Reviewed Allergies: Reviewed Social History: Reviewed Code Status: Full Code Allergies Allergy/AdvReac Type Severity Reaction Status Date / Time amoxicillin Allergy Unknown Rash Verified 11/20/23 08:36 morphine AdvReac Unknown N/V Verified 11/20/23 08:36 Home Medications Medication Instructions Recorded Confirmed Type multivitamin (Daily Multi-Vitamin 1 tab PO DAILY 11/17/18 02/23/24 History tablet) fluticasone propionate 50 1 spray intranasal DAILY PRN 12/14/21 02/23/24 History mcg/actuation nasal Congestion spray,suspension (Flonase Allergy Relief) venlafaxine 75 mg capsule,extended 150 mg PO HS 10/06/23 02/23/24 History release 24 hr carbidopa ER 50 mg-levodopa 200 mg 2 tab PO TID 01/08/24 02/23/24 History tablet,extended release aspirin 81 mg tablet,delayed 81 mg PO QAM #90 tabs 01/09/24 02/23/24 Rx release ondansetron 4 mg disintegrating 4 mg PO Q6H PRN nausea/vomiting 01/09/24 02/23/24 Rx tablet #10 tabs rimegepant 75 mg disintegrating 75 mg PO DAILY PRN migraine 01/09/24 02/23/24 Rx tablet (Nurtec ODT) headache #8 tabs verapamil 120 mg 24 hr 120 mg PO HS #30 caps 01/09/24 02/23/24 Rx capsule,extended release gabapentin 400 mg capsule 300 mg PO BID 02/23/24 02/23/24 History 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 Cognitive changes Tremor Pre-syncope Left knee pain Abnormal uterine bleeding (AUB) Polyarthralgia Metabolic syndrome Breast mass Vertigo Obesity Right hip pain Medical History Complicated migraine Parkinson disease LEEANN (obstructive sleep apnea) History of migraine Tremor History of COVID-19 02/2023 Tubular adenoma of colon LEEANN (obstructive sleep apnea) Previous CPAP (has not used since weight loss of approximately 30-35lbs) Depression Anxiety Tinea corporis Surgical History History of anesthesia reaction Patient reports during a dental procedure in 2016, dentist said tongue was ab normally large and had to be held back by medical support assistant during the surgery > has lost weight since, feels may no longer be an issue, nothing was reported after more recent dental procedure History of colonoscopy S/P dilation and curettage Hx of oral surgery for broken tooth S/P tubal ligation during CS History of tonsillectomy and adenoidectomy History of placement of ear tubes History of delivery x3 History of breast biopsy benign History of endometrial ablation + D&C History of arthroscopy of knee right knee History of right hip replacement Family History Mother Hearing loss Breast cancer Grandmother (Maternal) Diabetes Grandfather (Maternal) Diabetes Grandfather (Paternal) Cancer Stomach cancer Father Pulmonary embolism Other Obesity Denies family history of Ovarian cancer Prostate cancer Clotting disorder Myocardial infarction Colorectal cancer Uterine cancer Social History Smoking Status: Never smoker Tobacco Type: Cigarettes packs per day: 0.5; Cigarettes Per Day: 5+; Second Hand Exposure: No; Do You Dip or Chew Tobacco: No; Hx Alcohol Use: No Hx Substance Use: No Preferred Language: Icelandic Communication Ability: Effective Visual Impairment: No Limitations Hearing Ability: Normal Cytometry Technologist Required: No Beliefs That Will Affect Care: None marital status: Current Living Situation: Spouse and Family Current Living Situation Comment: brother in-law and mother in-law current occupational status: employed 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 NAD. Cooperative. HEENT: Atraumatic, normocephalic. Pulm: CTAB A&P. -wheezes, -rales, -rhonchi. Symmetrical chest rise. No increased work of breathing. No respiratory distress. Cardiac: RRR, -mrg. Radial pulses intact and symmetrical. Abdominal: Nontender, nondistended, soft. BS present. CRANIAL NERVES: II: Pupils equal and reactive, no relative afferent pupillary defect, no VF cuts III, IV, : EOM intact, no gaze preference or deviation, no nystagmus. V: normal sensation in V1, V2, and V3 segments bilaterally VII: no asymmetry, no nasolabial fold flattening VIII: normal hearing to speech IX, X: normal palatal elevation, no uvular deviation XI: 5/5 head turn and 5/5 shoulder shrug bilaterally XII: midline tongue protrusion MOTOR: RUE: 5/5 Shoulder internal rotation, external rotation, flexion, extension, abductio n, adduction 5/5 Elbow flexion/extension, wrist flexi on/extension 5/5 die designer apprentice strength, finger flexion/extens ion, interosseus LUE: 5/5 Shoulder internal rotation, external rotation, flexion, extension, abduction, adduction 5/5 Elbow flexion/extension, wrist flexi on/extension 5/5 die designer apprentice strength, finger flexion/extens ion, interosseus RLE: 5/5 to hip flexion, ankle dorsiflexion/p lantarflexion LLE: 5/5 to hip flexion, ankle dorsiflexion/p lantarflexion SENSORY: Qualitative decrease in sensation of the RIGHT dorsal hand and RIGHT arm compared to left. Otherwise sensation intact in hands, arms, and feet bilat. Results & Data Results & Data Vital Signs (Past 12 Hours) Vital Signs Temp Pulse Resp BP Pulse Ox O2 Del Method 02/23/24 15:00 150/92 H 02/23/24 15:00 66 17 97 02/23/24 14:42 67 26 H 94 02/23/24 14:36 63 14 94 Room Air 02/23/24 14:30 134/83 02/23/24 14:12 63 23 93 Room Air 02/23/24 14:09 67 94 Room Air 02/23/24 14:00 132/86 02/23/24 13:57 67 16 95 02/23/24 13:36 64 19 94 02/23/24 13:06 72 20 92 02/23/24 13:03 136/87 02/23/24 12:55 67 02/23/24 12:22 36.6 C 78 18 150/91 H 95 Room Air PG Care Time/CCT Total # of Minutes Spent Total Time Spent with Patient: Total time spent is greater than 50% in coordination of care (as documented) at patient's floor/unit and/or counseling patient: Coding Level of Care Code 11123 INT INP/OBS CARE 3/75MIN Diagnoses Stroke-like symptom R29.90 Complicated migraine G43.109 LEEANN (obstructive sleep apnea) G47.33 Parkinson disease G20
--- NOTE | 2024-02-23 16:51 | Electrocardiogram Report ---
Test Reason : Blood Pressure : */* mmHG Vent. Rate : 62 BPM Atrial Rate : 62 BPM P-R Int : 138 ms QRS Dur : 76 ms QT Int : 388 ms P-R-T Axes : 2 3 19 degrees QTcB Int : 393 ms Normal sinus rhythm Normal ECG When compared with ECG of 08-Jan-2024 12:20, T wave inversion now evident in Inferior leads Confirmed by Issa Gimenez ([id number]) on 02/23/2024 4:51:14 PM Referred By: Confirmed By: Issa Gimenez
[2024-02-23] MEDS ORDERED: ONDANSETRON 4 MG OD TAB PO PRN (17:07)
[2024-02-23] MEDS ORDERED: PHARMACIST DISCHARGE MED REC CONSULT PRN (17:07)
[2024-02-23] MEDS: CARBIDOPA/LEVODOPA 50/200MG EXT REL TAB PO SCH (17:42)
--- OUTSIDE RECORDS SUMMARY | 2024-02-23 19:29 | External Medical Summary | Summary of Care ---
Author Name Unknown Organization [facility] Address [address] [place] [address] Phone [phone] Care Team Providers Care Excel Analyst Name Role Phone Malvin Reynolds Attrufuso DO Primary Care Provider Encounter Details Date Type Department Care Team (Late st Contact Info) Description 02/12/2024 1:00 PM EDT Office Visit Otolaryngology [facility] [address] [id number] Isadora Foreman PA-C [address] [place] [id number] Chronic Eustachian tube dysfunction, bilateral* Allergies Active Allergy Reactions Criticality Noted Date Comments Amoxicillin Rash 07/15/2017 Morphine Nausea/vomiting 07/15/2017 documented as of this encounter (statuses as of 02/12/2024) Medications Medication Sig Dispensed Refills Start Date End Date Status albuterol (VENTOLIN HFA) 108 (90 BASE) MCG/ACT inhalerIndications: Viral URI Inhale 2 Puffs by mouth every 4 hours as needed for Wheezing. 1 Inhaler 07/15/2017 Active Spacer/Aero-Holding Chambers DEVIIndications:Vir al URI Use with inhaler. 1 Device 07/15/2017 Active benzonatate (TESSALON PERLES) 100 MG Capsule Take 1 Cap by mouth 3 times a day as needed for Cough. 30 Cap 07/15/2017 Active Additional Information Patient not taking.Reported on 08/05/2023 Carbidopa-Levodopa 25-100 MG Oral Tablet (Sinemet) TAKE 2 TABLETS BY MOUTH FOUR TIMES A DAY 07/17/2023 Active Gabapentin 100 MG Oral Capsule (Neurontin) 07/27/2023 Active Gabapentin 300 MG Oral Capsule (Neurontin) 07/27/2023 Active Methocarbamol 500 MG Oral Tablet (Robamol) TAKE 1 TABLET BY MOUTH EVERY 8 HOURS 07/24/2023 Active documented as of this encounter (statuses as of 02/12/2024) Active Problems No known active problems documented as of this encounter (statuses as of 02/12/2024) Social History Tobacco Use Types Packs/Day Years Used Date Smoking Tobacco: Former Smokeless Tobacco: Never Utilities Answer Date Recorded Do you have trouble paying y our heating, water, or electric bill? (Adult - for ages 18 years and over) Not on file 11/11/2023 Is your family able to pay t he heat, water, or electric bill? (Household - for ages 0-17 years) Not on file 11/11/2023 Does your family have access to good internet? (Household - for ages 0-17 years) Not on file 11/11/2023 Social Connections Answer Date Recorded How often do you feel lonely or isolated from those around you? (Adult - for ages 18 years and over) Not on file 11/11/2023 Sex and Gender Information Value Date Recorded Sex Assigned at Not on file Gender Identity Female 08/04/2023 12:49 PM EDT Sexual Orientation Not on file Job Start Date Occupation Industry Not on file Not on file Not on file documented as of this encounter Last Filed Vital Signs Vital Sign Reading Time Taken Comments Blood Pressure - - Pulse - - Temperature 36.2 C (97.2 F) 02/12/2024 1:14 PM ED T Respiratory Rate - - Oxygen Saturation - - Inhaled Oxygen Concentration - - Weight 92.9 kg (204 lb 12.8 oz) 02/12/2024 1:14 PM EDT Height 168.9 cm (5' 6.5") 02/12/2024 1:14 PM EDT Body Mass Index 32.56 02/12/2024 1:14 PM EDT documented in this encounter Progress Notes * Isadora Foreman PA-C - 02/12/2024 1:55 PM EDT SUBJECTIVE: Puneet De La Torre is a 53 year old female. No chief complaint on file. Nursing Notes: Nola Rosado, KAROLYN 02/12/24 1315 Signed Pt presents today for a routine follow up check of her ears. Pt states she had an episode 1 day agoof dizziness and nausea, as well as pressure in her hear while swimming. Pt is requesting an audio test due to having decreased hearing in the last yr. HPI: Patient presents for 6 month return appointment for follow-up of chronic Eustachian tube dysfunction. She had binaural fullness and pressure 2 days ago with imbalance that resolved. She has an upcoming appointment in [place] with a movement disorder specialist for her Parkinson's. She also recently got . There is no problem list on file for this patient. Current Outpatient Medications Medication Sig Dispense Refill albuterol (VENTOLIN HFA) 108 (90 BASE) MCG/ACT inhaler Inhale 2 Puffs by mouth every 4 hours as needed for Wheezing. 1 Inhaler 0 Spacer/Aero-Holding Chambers PATRICIA Use with inhaler. 1 Device 0 benzonatate (TESSALON PERLES) 100 MG Capsule Take 1 Cap by mouth 3 times a day as needed for Cough.(Patient not taking: Reported on 08/05/2023) 30 Cap 0 Carbidopa-Levodopa 25-100 MG Oral Tablet (Sinemet) TAKE 2 TABLETS BY MOUTH FOUR TIMES A DAY Gabapentin 100 MG Oral Capsule (Neurontin) Gabapentin 300 MG Oral Capsule (Neurontin) Methocarbamol 500 MG Oral Tablet (Robamol) TAKE 1 TABLET BY MOUTH EVERY 8 HOURS No current facility-administered medications for this visit. Review of patient's allergies indicates: Allergen Reactions Amoxicillin Rash Morphine Nausea/vomiting REVIEW OF SYSTEMS Negative for constitutional, heart, lung, liver, kidney, digestive, hematologic, neurologic, rheumatologic, or endocrine complaints except as per history of present illness and past medical history. OBJECTIVE: Temp 36.2 C (97.2 F) (Tympanic) | Ht 1.689 m (5' 6.5") | Wt 92.9 kg (204 lb 12.8 oz) | BMI 32.56 kg/m | BSA 2.09 m PHYSICAL EXAM: General: alert, healthy and no distress Ears: Examination of the ears revealed that the auricles were normally formed with no lesions. The external auditory canals were cleaned of any obstructing cerumen. The left tympanic membrane is intact and freely mobile to pneumatoscopy without perforation or significant retraction pockets. Right TM with posterior flaccid area, stable ASSESSMENT/PLAN: Encounter Diagnoses Name Primary? Chronic Eustachian tube dysfunction, bilateral Yes Plan: chronic ETD is stable. She will return in 6 months with audio. Isadora Foreman PA-C 02/12/2024 1:57 PM documented in this encounter Nursing Notes * Nola Rosado LPN - 02/12/2024 1:12 PM EDT Pt presents today for a routine follow up check of her ears. Pt states she had an episode 1 day agoof dizziness and nausea, as well as pressure in her hear while swimming. Pt is requesting an audio test due to having decreased hearing in the last yr. documented in this encounter Plan of Treatment Upcoming Encounters Date Type Department Care Team (Late st Contact Info) Description 08/12/2024 9:30 AM EDT Office Visit Audiology [facility] [address] [id number] Saige Munroe Au.D. [address] [address] 08/12/2024 10:00 AM EDT Office Visit Otolaryngology [facility] [address] [address] Isadora Foreman PA-C [address] [address] Health Maintenance Due Date Last Done Comments Diabetes Screening 1972 Lipid Panel 1972 Depression Screening 1984 HIV Screening 12/03/1987 Hepatitis C Screening 1990 DTap/Tdap Vaccines (1 - Tdap) 12/03/1991 Hepatitis B Vaccine (1 of 3 - 19+ 3-dose series) 12/03/1991 Pap Smear 1993 Cervical Cancer Screening 2002 HPV/Co-Test 2002 Mammogram 2012 Cologuard 2017 Colonoscopy 2017 Colorectal Cancer Screening 2017 Fecal Occult Blood Test 2017 Sigmoidoscopy 2017 Zoster Vaccines (1 of 2) 2022 COVID-19 Vaccine (1 - 2023-2 5 season) 2024 Influenza Vaccine (FLU shot) (#1) 2024 023 HPV (Gardasil) Vaccine Aged Out No lo nger eligible based on patient's age to complete this topic MENINGOCOCCAL (MENACTRA/MENVEO) Aged Out No longer eligible based on patient's age to complete this topic Pneumococcal Vaccine: Pediat rics (0 to 5 Years) and At-Risk Patients (6 to 64 Years) Aged Out No longer eligi ble based on patient's age to complete this topic documented as of this encounter Medical Devices Not on filedocumented as of this encounter Visit Diagnoses Diagnosis Chronic Eustachian tube dysfunction, bilateral- Primary documented in this encounter Care Teams Excel Analyst Relationship Specialty Start Date End Date Malvin Reynolds DO [address] [address] PCP - General Family Medicine 02/04/23 documented as of this encounter
--- NOTE | 2024-02-23 20:32 | Magnetic Resonance Report ---
Exam(s): MRI HEAD Without Contrast EXAM: MR Head Without Intravenous Contrast CLINICAL HISTORY: Reason for exam: CVA eval, RUE weakness/numbness. TECHNIQUE: Magnetic resonance images of the head/brain without intravenous contrast in multiple planes. COMPARISON: 01/08/2024 FINDINGS: Brain: Minimal T2/flair signal hyperintensity particularly within the basal ganglia bilaterally. This is unchanged when compared with the prior exam. No hemorrhage. No acute infarct. Ventricles: Unremarkable. No ventriculomegaly. Bones/joints: Unremarkable. No acute fracture. Sinuses: Unremarkable as visualized. No acute sinusitis. Mastoid air cells: Unremarkable as visualized. No mastoid effusion. Orbits: Unremarkable as visualized. IMPRESSION: No acute findings in the head/brain. Mild ischemic microangiopathy Electronically signed by: Joseulis Lopez MD 02/23/24 20:31 PM
[2024-02-23] MEDS: VENLAFAXINE HCL XR 150 MG CAPXR PO SCH (20:55)
[2024-02-23] MEDS: GABAPENTIN 300 MG CAP PO SCH (20:55)
[2024-02-23] MEDS: VERAPAMIL HCL 120 MG TABCR PO SCH (20:55)
[2024-02-24 06:28] LABS: Basophils # (auto) 0.04 K/uL (0.00-0.20); Basophils % (auto) 0.7 %; Eosinophils # (auto) 0.23 K/uL (0.00-0.50); Eosinophils % (auto) 3.9 %; Hematocrit (blood only) 45.4 % (37.0-47.0); Immature Granulocytes # (auto) 0.02 K/uL (0.01-0.20); Immature Granulocytes % (auto) 0.3 %; Lymphocytes # (auto) 1.05 K/uL (1.20-3.40); Lymphocytes % (auto) 17.8 %; Mean Corpuscular Hemoglobin 30.9 pg (25.0-34.0); Mean Corpuscular Volume 93.4 fL (80.0-100.0); Mean Platelet Volume 8.9 fL (9.4-12.4); Monocytes # (auto) 0.69 K/uL (0.11-0.59); Monocytes % (auto) 11.7 %; Neutrophils # (auto) 3.87 K/uL (1.40-6.50); Neutrophils % (auto) 65.6 %; Platelet Count 269 K/uL (130-400); RDW Coefficient of Variation 12.1 % (11.5-14.5); RDW Standard Deviation 42.2 fL (36.4-46.3); Red Blood Count 4.86 M/uL (4.20-5.40)
[2024-02-24 06:49] LABS: BUN Creatinine Ratio 19.5 (10-20); Calcium 9.2 mg/dl (8.6-10.3); Chol HDL Ratio 3.1 (0-5); Creatinine Clr Calc Pharmacy 92.9 ml/min; Est GFR (Non-African American) 82.9 ml/min; Potassium 4.6 mmol/L (3.5-5.1)
[2024-02-24 07:02] LABS: Estimated Average Glucose 111 mg/dl; Hemoglobin A1C 5.5 % (4.5-5.6)
[2024-02-24] MEDS: CLOPIDOGREL BISULFATE 75 MG TAB PO SCH (08:09)
[2024-02-24] MEDS: ASPIRIN 81 MG ECTAB PO SCH (08:10)
[2024-02-24] MEDS: MULTIVITAMIN TAB PO SCH (08:10)
[2024-02-24 08:40] VITALS: RESP 18
[2024-02-24] MEDS: ENOXAPARIN INJ 40 MG/0.4 ML SYR SQ SCH (11:32)
--- NOTE | 2024-02-24 11:39 | Neurology Consultation ---
Date of Consultation February 24, 2024 Assessment & Plan (1) Complicated migraine: (2) Parkinson disease: (3) Depression: Plan Patient has had the onset of some right upper extremity numbness, possible slurred speech, and lightheadedness starting on February 21 but worse on Jan. The symptoms are very nonspecific but resolved although she is left with little lightheadedness with standing as well as some minor decrease sensation into digits of the right hand. In December 2023, the evidence pointed to a migraine (or possible complex migraine) explaining her symptoms. This time she did not have a headache but may have had vasospasm like she probably had a month ago. Both in December and currently she has had normal CT angiography of the head and neck, normal CT scans of the head and normal MRIs of the brain including with and without contrast. The patient did not have a stroke previously or currently. I do not believe this is a TIA. Currently, I am not even sure she had a migraine or even an aura. She has some very minor symptoms that may be side effects to the carbidopa levodopa. The patient has a diagnosis of Parkinson's disease, of a tremor predominant nature. The tremor apparently was mild and her other Parkinson features were mild. There may have been some bradykinesia but there is no history of significant rigidity. She does have some Parkinson gait features as well. I am concerned this patient is on a fairly high total daily dose of carbidopa levodopa and may be experiencing some side effects from this. Patient has depression helped considerably with current dose of venlafaxine. Recommendations: 1. I see no need for additional neurologic testing at this time 2. The patient wants to be off gabapentin and I would suggest tapering to 300 mg once daily for 1 week and then discontinue 3. Continue 120 mg ER venlafaxine each evening. This could be titrated if needed in future. 4. Continue 81 mg aspirin tablet daily, although I am not certain this is helpful for her symptoms at this time. Certainly there is no need for additional medications such as clopidogrel. 5. Continue carbidopa/levodopa at the current dose. As an outpatient, we could consider lowering the dose to see if she has less symptoms. 6. Follow-up in, hopefully, several weeks with Ariella Sanchez PA-C, at [facility] neurology Overall, I spent a total of 75 minutes with this case including review of records, review CT and MRI films, direct evaluation of the patient, and discussing the case with the patient and RN at bedside and Dr. Wilburn, including differential diagnosis and treatment options. History of Present Illness Reason for Consultation: Patient is a 53-year-old who I was asked to see at the request of Dr. Brennan, for neurologic consultation regarding new onset symptoms and parkinsonism. Requesting Physician: Dr. Brennan Attending Physician: Jimy Wilburn MD History of Present Illness Patient has a history of migraine headaches mostly from her 20s and 30s occurring about once every 2 weeks. She would not get any warnings and there were no triggers. Headaches are bitemporal pressure with nausea, vomiting, and photophobia. There would last 1 to 2 days and [id number] medications would help. These headaches faded by her 40s and she really has not been getting them anymore. This patient was first seen by [facility] neurology in October 2022 for memory issues, tremor, bradykinesia, and gait abnormality. It seems as if the patient had early Parkinson's disease. An MRI of the brain in October 2022 with and without contrast was unremarkable. There was no change from the previous study of February 2019. A DAMION Brain Spect scan done at [facility] December 19, 2022 changes consistent with Parkinson's disease. She was initiated on carbidopa/levodopa and eventually switched from IR to, 50/200 ER. This was titrated over time. Currently she is taking carbidopa/levodopa, 50/200 ER, 2 tablets 3 times a day. She does complain of some lightheadedness with standing and some memory issues but no hallucinations. She does have some occasional dyskinesia. She has chronic low back pain and sees pain management. She takes gabapentin 3 mg twice a day but wants to get off this because she feels that she does not need the medicine anymore. And August 2023, the patient saw Dr. Paulson, movement disorder specialist at [facility] who diagnosed Parkinson's disease (likely since early 2022). She had right hand resting tremor of a mild nature. Although the patient had memory loss she had a normal Mini-Mental status examination scoring 30 out of 33 points. She has had depression of the longstanding nature and he initiated venlafaxine 37.5 mg. Venlafaxine has been titrated to 150 mg ER evening. Her mood is much better. In December 2014 the patient had an episode of the onset of her right facial drooping and numbness of the cheek. Her vision was blurry. This lasted for several hours. As this faded, she was getting bitemporal headache without nausea, vomiting, or photophobia. MRI of the brain was unremarkable with and without contrast. CT angiography of the head and neck were unremarkable as well without any vascular issues. She saw Dr. Dunne in consultation. It was decided to put her on dual antiplatelet therapy with clopidogrel 75 and aspirin 81 mg for 3 weeks. She did this after discharge and now is on aspirin alone. At the same time he initiated verapamil 120 mg ER at bedtime to prevent vasospasm thinking that this was likely a migraine or even complicated migraine. She was given Nurtec to take as needed. Apparently Nurtec has helped. She did well until recently. On January 21 she noted some numbness in her right hand with some decreased railroad watchman. This was persistent. On February 22 she had the onset of some slurred speech and some lightheadedness. The numbness involves more of her right upper extremity and a little into her right leg. There is no headache before, during, or after this event. She arrived to the emergency room February 22 at 1222 with a temperature of 36.6, pulse 78, respiratory 18, blood pressure 150/90 and O2 saturation 95%. Neurologic examination was unremarkable although she still had some right-sided facial weakness and numbness which was improving rapidly. CBC, CHEM profile, urinalysis, and chest x-ray were unremarkable. CT scan of the head was unremarkable. CT angiography of the head and neck were unremarkable. MRI of the brain without contrast was unremarkable. This morning she still has a little bit of numbness in her right hand (much like February 21) but has no speech issues or headache. There are no other symptoms present. She does get a little bit lightheaded with standing still. Total cholesterol was 169 and triglycerides 129. Hemoglobin A1c was 5.5. Blood pressure is 105/69 this morning. Allergies Allergy/AdvReac Type Severity Reaction Status Date / Time amoxicillin Allergy Unknown Rash Verified 11/20/23 08:36 morphine AdvReac Unknown N/V Verified 11/20/23 08:36 Home Medications Medication Instructions Recorded Confirmed Type multivitamin (Daily Multi-Vitamin 1 tab PO DAILY 11/17/18 02/23/24 History tablet) fluticasone propionate 50 1 spray intranasal DAILY PRN 12/14/21 02/23/24 History mcg/actuation nasal Congestion spray,suspension (Flonase Allergy Relief) venlafaxine 75 mg capsule,extended 150 mg PO HS 10/06/23 02/23/24 History release 24 hr carbidopa ER 50 mg-levodopa 200 mg 2 tab PO TID 01/08/24 02/23/24 History tablet,extended release aspirin 81 mg tablet,delayed 81 mg PO QAM #90 tabs 01/09/24 02/23/24 Rx release ondansetron 4 mg disintegrating 4 mg PO Q6H PRN nausea/vomiting 01/09/24 02/23/24 Rx tablet #10 tabs rimegepant 75 mg disintegrating 75 mg PO DAILY PRN migraine 01/09/24 02/23/24 Rx tablet (Nurtec ODT) headache #8 tabs verapamil 120 mg 24 hr 120 mg PO HS #30 caps 01/09/24 02/23/24 Rx capsule,extended release gabapentin 400 mg capsule 300 mg PO BID 02/23/24 02/23/24 History Patient History Medical History Complicated migraine Parkinson disease LEEANN (obstructive sleep apnea) History of migraine Tremor History of COVID-19 02/2023 Tubular adenoma of colon LEEANN (obstructive sleep apnea) Previous CPAP (has not used since weight loss of approximately 30-35lbs) Depression Anxiety Tinea corporis Surgical History History of anesthesia reaction Patient reports during a dental procedure in 2016, dentist said tongue was abnormally large and had to be held back by assistant chief train dispatcher during the surgery > has lost weight since, feels may no longer be an issue, nothing was reported after more recent dental procedure History of colonoscopy S/P dilation and curettage Hx of oral surgery for broken tooth S/P tubal ligation during CS History of tonsillectomy and adenoidectomy History of placement of ear tubes History of delivery x3 History of breast biopsy benign History of endometrial ablation + D&C History of arthroscopy of knee right knee History of right hip replacement Family History Mother Hearing loss Breast cancer Grandmother (Maternal) Diabetes Grandfather (Maternal) Diabetes Grandfather (Paternal) Cancer Stomach cancer Father Pulmonary embolism Other Obesity Denies family history of Ovarian cancer Prostate cancer Clotting disorder Myocardial infarction Colorectal cancer Uterine cancer Social History Smoking Status: Never smoker Tobacco Type: Cigarettes packs per day: 0.5; Cigarettes Per Day: 5+; Second Hand Exposure: No; Do You Dip or Chew Tobacco: No; Hx Alcohol Use: No Hx Substance Use: No Preferred Language: Guatemalan Communication Ability: Effective Visual Impairment: No Limitations Hearing Ability: Normal Equipment Cleaner And Tester Required: No Beliefs That Will Affect Care: None marital status: Current Living Situation: Spouse and Family Current Living Situation Comment: brother in-law and mother in-law current occupational status: employed 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 many Children do You have: 3 Other Information That Helps Us Care for You: No Feels Safe at Home: Yes Childhood Exposure to Second-Hand Smoke: No Diet: regular caffeine: Yes during the past year weight has: remained stable Dental Care, Regularly: Yes Physical Activity Frequency: 3-4 Times per Week Seatbelt Use: always Sunscreen Use: Yes Assistive Devices: None Review of Systems Constitutional: + problem reported (Some lightheadedness with standing); no fever, no fatigue and no weakness Eyes: no diplopia, no eye pain and no worsening vision Ear, Nose, Mouth, Throat: no ear pain, no tinnitus, no hearing loss, no dizziness, no snoring, no hoarseness and no dysphagia Respiratory: no cough and no dyspnea Cardiovascular: + lightheadedness; no chest pain and no palpitations Gastrointestinal: no abdominal pain, no nausea and no vomiting Genitourinary: no dysuria, no urinary frequency and no urinary incontinence Musculoskeletal: + back pain; no neck pain, no radicular pain, no joint pain and no myalgia Integumentary: no rash and no lesions Neurologic: + tremor(s) and + memory loss; no gait a bnormality, no localized weakness, no generalized weakness, no tingling, no numbness, no abnormal movements, no headache(s), no abnormal speech and no confusion Psychiatric: no depression, no irritability, no anxiety, no difficulty concentrating, no confusion and no hallucinations Endocrine: no fatigue and no flushing Hematologic / Lymphatic: no easy bleeding and no easy bruising Allergy / Immunological: no urticaria and no problem reported Exam (Neuro) Physical Exam: The patient is right-handed. The patient is awake, alert, and attentive. Speech is normal without any aphasia or dysarthria. Mentation and thought processes are intact, with full orientation and normal fund of knowledge. Mood and affect are normal and appropriate. Appearance and grooming are normal. Short and long-term memory are intact to conversation. Pupils are 4 mm bilaterally and reactive to light. Extraocular eye muscles are intact without nystagmus. Visual acuity and visual walsh seem normal grossly to confrontation. There are no deficits to sensation in the face in all 3 distributions of the fifth cranial nerve bilaterally. Corneal reflexes are positive bilaterally. Facial strength and symmetry was normal bilaterally. Hearing seems intact grossly to voice and finger rub bilaterally. Palate moves well without asymmetry. There is normal sternocleidomastoid and trapezius strength bilaterally. Tongue is midline with good strength bilaterally. There is no masklike face or bradykinesia in general. Neck has a full range of motion without discomfort. There are no cervical bruits bilaterally. There are no cranial or ocular bruits. Heart is without murmur. There is a regular rhythm and rate. Cervical, thoracic, and lumbar spine are nontender to palpation. Gait is narrow based but she limps favoring her right leg (previous hip surgery). There is decreased arm swing on the right greater than left and she turns somewhat en bloc. Stance is normal with feet together and eyes open. Stance sitting in the bed is normal. When she first stood up she did have a little lightheadedness but recovered within a few seconds. With outstretched arms there is no drift. Patient has a very slight resting tremor on the right (only). There is no postural action tremor bilaterally.. There is no ataxia with finger to nose testing. There is good facility in the hands. No other abnormal involuntary movements are noted. Motor strength is 5/5 diffusely in the arms bilaterally including deltoids, biceps, triceps, brachioradialis, wrist flexors and extensors, railroad watchman, and intrinsic hand muscles. Motor strength is 5/5 diffusely in the legs bilaterally including hip flexors, quadriceps, hamstrings, gastrocnemius, tibialis anterior, tibialis posterior, and Peroneii muscles bilaterally. Toe extensors are normal and there is good bulk in the extensor digitorum brevis muscles bilaterally. The limbs have good tone without rigidity or spasticity. There is no atrophy noted in the muscles. Muscle bulk is normal, there is no tenderness to palpation, no myotonia to percussion, and no fasciculations seen. Sensory examination is intact to touch and pin throughout all 4 limbs diffusely, except she has some decreased numbness in the second and third digits of the right hand compared to the left. The back of the hand and palm and arm are spared. Reflexes are 2/4 in the biceps, triceps, and brachioradialis tendons bilaterally. Quadriceps and Achilles tendon reflexes are 1/4 bilaterally. Toes are downgoing with plantar stimulation bilaterally. Peripheral pulses are present and of normal quality distally in all 4 limbs. There is no peripheral edema noted in the limbs. Results & Data Vital Signs (Past 12 Hours) Vital Signs Temp Pulse Pulse Resp BP Pulse Ox O2 Del Method 02/24/24 08:00 36.8 C 69 18 105/69 93 Room Air 02/24/24 07:00 66 02/24/24 03:51 36.4 C L 69 16 117/78 93 Room Air PG Care Time/CCT Total # of Minutes Spent Total Time Spent with Patient: Total time spent is greater than 50% in coordination of care (as documented) at patient's floor/unit and/or counseling patient: Coding Level of Care Code 20150 INT INP/OBS CARE 3/75MIN Diagnoses Complicated migraine G43.109 Parkinson disease G20 Depression F32.9 Time Spent (min) 75
[2024-02-24 14:36] VITALS: BP 117/77; PULSE 72; TEMP 97.3; O2SAT 93
--- NOTE | 2024-02-24 15:00 | Discharge Summary ---
Discharge Summary Date of Service February 24, 2024 Principal Dx & Hospital Course #1 = Principal Diagnosis (1) Complicated migraine: (2) LEEANN (obstructive sleep apnea): (3) Parkinson disease: Plan 53-year-old female with past medical history of complex migraines, Parkinson's disease, anxiety and depression who presented to the hospital for sudden episode of right facial droop and numbness and right-sided weakness which resolved upon arriving to the hospital. Patient had an extensive stroke workup done including CT head, CTA of the head and neck and MRI of the brain which were all unremarkable and did not reveal any evidence of infarct or any abnormality. She was seen by neurologist Dr. Barnes and his recommendations were as follows: Recommendations: 1. I see no need for additional neurologic testing at this time 2. The patient wants to be off gabapentin and I would suggest tapering to 300 mg once daily for 1 week and then discontinue 3. Continue 120 mg ER venlafaxine each evening. This could be titrated if needed in future. 4. Continue 81 mg aspirin tablet daily, although I am not certain this is helpful for her symptoms at this time. Certainly there is no need for additional medications such as clopidogrel. 5. Continue carbidopa/levodopa at the current dose. As an outpatient, we could consider lowering the dose to see if she has less symptoms. 6. Follow-up in, hopefully, several weeks with Ariella Sanchez PA-C, at [facility] As per neurology, it appears patient had a complex migraine which has resolved She will taper gabapentin as per neurology recommendations She will follow-up with neurology as outpatient Patient seen and examined today. I have gone over the discharge medications, care plan and follow-up with the patient and her Marco who is at her bedside in great detail and answered all their questions. This discharge greater than 30 minutes to coordinate Admission HPI Per Admitting Provider Puneet reports she developed numbness and tingling intermittently in her RIGHT hand sinc eyesterday which is different from her prior symptoms. Abruptly at 1215 this afternoon her R arm then was numb from the elbow down and hand paresthesia worsened, and she felt unusually dizzy.. caught her because she was off balance and also noted patients speech was off/dysarthric. Patient also had some visual changes with spots that didn't move, white clouded spots that didn't move and she isn't sure if thi swas in a particular eye or both. At time of hospital assessment she denies vision change. No headache. Past history of migraines years ago, denies any recent migraines but does have Nurtec just in case. Did use once at january which quickly resolved a headache which she felt did not progress to migraine. Weakness in the RIGHT side which resolved by time of hospitalist assessment. Pt and note most prominent symptom was loss of pinprick sensation on the right arm/hand. Denies fevers chills or sweats. No chest pain or chest pressure. No shortness of breath. No dysuria or urinary symptoms. No nausea/vomiting. Medical History: Reviewed Medications: Reviewed Surgical History: Reviewed Family history: Reviewed Allergies: Reviewed Social History: Reviewed Code Status: Full Code Discharge Exam General: No acute distress Psych: Awake and alert HEENT: Anicteric sclera, moist oral mucosa CVS: Regular rate and rhythm Lungs: Bilateral air entry, no wheezing noted Abdomen: Soft, nontender, no rebound, no guarding Ext: No lower extremity edema, no calf tenderness Neuro: No focal motor deficits noted Discharge Plan Discharge Items Patient Disposition: Home - Self-Care Reason For Visit: CVA EVAL Discharge Diagnosis: #Complicated migraine #Parkinson's disease #Depression Activity: Resume your previous activity Non-emergency contact: Primary Care Provider Call non-emergency contact if: you have any medication questions, your symptoms worsen, your pain is not controlled and you have a fever Follow-up/Referrals: Eduin Ortiz MD [Primary Care Provider] - Ariella Sanchez PA-C [Physician Conference Assistant] - Diet: Heart Healthy Addtl Attending Provider Instructions: DISCHARGE INSTRUCTION TO PATIENT/FAMILY: Follow-up with your primary care provider within 1 week regarding: Posthospital discharge, medication review, medication refills and follow-up on all your medical problems Please take all your discharge medications, discharge information and discharge instructions to all your doctors appointments. You were seen by the neurologist Dr. Barnes during this hospital stay. You were diagnosed with a complex migraine. Neurologist is recommending tapering gabapentin to 300 mg once daily for 1 week and then discontinue. Follow-up with neurology Ariella Sanchez PA-C, at [facility] in 2-3 weeks time as outpatient Pending Studies at Discharge: No Stand-Alone Forms: My [facility], Smoking Cessation Medications and DC Order Prescriptions: Continued venlafaxine 75 mg capsule,extended release 24hr 150 mg PO HS multivitamin [Daily Multi-Vitamin] tablet 1 tab PO DAILY fluticasone propionate [Flonase Allergy Relief] 50 mcg/actuation spray,suspension 1 spray intranasal DAILY PRN (Reason: Congestion) Rx Instructions: not on file with pharmacy administer into each nostril carbidopa-levodopa 50-200 mg tablet extended release 2 tab PO TID Rx Instructions: new prescriptions 2 tablets po tid 8 am, 1pm, 6pm aspirin 81 mg Tablet,Delayed Release (Dr/Ec) 81 mg PO QAM Qty: 90 0RF Rx Instructions: purchase [id number] verapamil 120 mg capsule,ext rel. pellets 24 hr 120 mg PO HS Qty: 30 2RF Rx Instructions: for headache prevention Nurtec ODT 75 mg tablet,disintegrating 75 mg PO DAILY PRN (Reason: migraine headache) Qty: 8 1RF Rx Instructions: max 1 tablet in a 24-hour period. ondansetron 4 mg tablet,disintegrating 4 mg PO Q6H PRN (Reason: nausea/vomiting) Qty: 10 0RF Changed gabapentin 400 mg capsule 300 mg PO DAILY Qty: 0 0RF Discharge Orders: Discharge Order (Routine); Ordered 02/24/24 Ordered By: Jimy Wilburn Admission Data Admit Date/Time: 02/23/24 16:01 Attending Provider: Jimy Wilburn Admit Provider: Israel Brennan Primary Care Provider: Eduin Ortiz Other Providers: Israel Brennan; Eric Barnes Hospital Stay Data Consultations 02/23/24 13:47 ED Decision to Admit Stat 02/23/24 17:07 Consult Neurology Routine Diagnostic Imagining Performed 02/23/24 12:48 CT angio head w con Stat CT angio neck with con Stat CT head/brain wo con Stat 02/23/24 17:07 MRI Brain [MR brain wo con] Routine Chest X-Ray 02/23/24 12:48 XR chest 1V portable CLINICAL HISTORY: neuro deficit, acute stroke suspected TECHNIQUE: Single frontal radiograph of the chest was obtained. Comparison: Comparison is made to chest radiograph 01/08/2024 FINDINGS: No lines and tubes are seen. The cardiomediastinal silhouette is normal. The lungs are clear. No evidence of pleural effusion or pneumothorax. IMPRESSION: No acute chest disease. ACT 112: Negative or not required by law. Electronically signed by: Delfino Baeza M.D. 02/23/2024 12:[address] 02/23/24 12:48 CT head/brain wo con CLINICAL HISTORY: 53 years-old Female with neuro deficit, acute stroke suspected. Acute strokelike symptoms TECHNIQUE: Multiple axial CT images of the head were obtained without contrast. A dose lowering technique was utilized adhering to the principles of ALARA. COMPARISON: CTA head and neck of same day, brain MRI 01/08/2024 FINDINGS: No acute intracranial hemorrhage, midline shift, intracranial mass, hydrocephalus, territorial ischemia or abnormal extra-axial collection. Mild cerebral vascular calcifications. Persistent trigeminal artery again noted. Mild periventricular white matter hypodensities are again noted. The calvarium is intact. The paranasal sinuses, mastoid air cells, and middle ear cavities are clear. IMPRESSION: No acute intracranial abnormality. ACT 112: Negative or not required by law. The above report was generated using voice recognition software. It may contain grammatical, syntax or spelling errors. Electronically signed by: Selvin Peres M.D. 02/23/2024 1:29 PM Head CTA 02/23/24 12:48 CTA ANGIOGRAPHY OF THE HEAD CLINICAL HISTORY: neuro deficit, acute stroke suspected COMPARISON STUDY: Head CT, CTA of the head and MRI the brain January 08, 2024. TECHNIQUE: Helical axial images of the head were obtained following uneventful intravenous administration of 118 cc of Optiray. Sagittal and coronal reconstructions were viewed as well as maximal intensity projections on an independent 3-D workstation. Automated exposure control was utilized for the study. A dose lowering technique was utilized adhering to the principles of ALARA. FINDINGS: No acute intracranial hemorrhage, midline shift or mass effect is present. Ventricular system is normal. Basal cisterns are patent. There are no extra-axial collections. The bilateral M1, M2, A1 and A2 segments are patent. There is no intracranial aneurysm or vessel occlusion. 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 The intracranial portions of the vertebral arteries and basilar artery is diminutive on a congenital basis. No vessel occlusion within the posterior circulation is identified. IMPRESSION: No large vessel occlusion. No intracranial aneurysm. ACT 112: Negative or not required by law. Electronically signed by: Jack Major M.D. 02/23/2024 1:15 PM Neck CTA 02/23/24 12:48 CT angio neck with con CLINICAL HISTORY: neuro deficit, acute stroke suspected TECHNIQUE: CT angiography of the neck was performed following intravenous ad ministration of iodinated contrast. Coronal and sagittal MIPS were obtained from the axial data set and were submitted for review. Automated dose lowering techniques and/or adjustment according to patient size were utilized for this examination. All measurements were calculated based on NASCET criteria. CT DOSE: 1193.25 mGy.cm Comparison: None available at the time of this dictation. FINDINGS: Lungs and soft tissues are unremarkable. CTA Neck: A 3 vessel aortic arch is shown. There is no significant atherosclerotic plaque in the aortic arch or the origins of the innominate, left common carotid, and left subclavian arteries. The common carotid, external carotid, cervical segments of the internal carotid arteries, and the cervical segments of the vertebral arteries are patent without hemodynamically significant stenosis. The vertebral arteries are codominant. IMPRESSION: No occlusion, hemodynamically significant stenosis, or dissection in the major cervical arteries. Assessment of stenosis of the internal carotid arteries is based on NASCET criteria. ACT 112: Negative or not required by law. Electronically signed by: Delfino Baeza M.D. 02/23/2024 1:06 PM Brain MRI 02/23/24 17:07 Exam(s): MRI HEAD Without Contrast EXAM: MR Head Without Intravenous Contrast CLINICAL HISTORY: Reason for exam: CVA eval, RUE weakness/numbness. TECHNIQUE: Magnetic resonance images of the head/brain without intravenous contrast in multiple planes. COMPARISON: 01/08/2024 FINDINGS: Brain: Minimal T2/flair signal hyperintensity particularly within the basal ganglia bilaterally. This is unchanged when compared with the prior exam. No hemorrhage. No acute infarct. Ventricles: Unremarkable. No ventriculomegaly. Bones/joints: Unremarkable. No acute fracture. Sinuses: Unremarkable as visualized. No acute sinusitis. Mastoid air cells: Unremarkable as visualized. No mastoid effusion. Orbits: Unremarkable as visualized. IMPRESSION: No acute findings in the head/brain. Mild ischemic microangiopathy Electronically signed by: Joseluis Lopez MD 02/23/24 20:31 PM 02/23/24 02/23/24 02/23/24 12:44 12:47 12:52 WBC 5.63 RBC 4.78 Hgb 15.4 POC Hgb 15.0 Hct 43.5 POC Hct 44 MCV 91.0 MCH 32.2 MCHC 35.4 RDW Std Deviation 40.1 RDW Coeff of Domo 11.9 Plt Count 318 MPV 9.3 L Immature Gran % (Auto) 0.2 Neut % (Auto) 55.7 Lymph % (Auto) 33.4 [place] % (Auto) 7.8 Eos % (Auto) 1.8 Baso % (Auto) 1.1 Neut # (Auto) 3.14 Lymph # (Auto) 1.88 [place] # (Auto) 0.44 Eos # (Auto) 0.10 Baso # (Auto) 0.06 Immature Gran # (Auto) 0.01 PT 10.2 INR 0.9 APTT 29 PTT Ratio 1.1 POC Sodium 140 Sodium 139 POC Potassium 4.2 Potassium 4.2 POC Chloride 100 L Chloride 102 Carbon Dioxide 30 POC Total CO2 28 Anion Gap 7 POC Anion Gap 17.0 POC BUN 14 BUN 13 Creatinine 0.87 POC Creatinine 0.9 Est Cr Clr Drug Dosing 92.2 Est GFR ( Amer) 89.4 Est GFR (Non-Af Amer) 77.1 BUN/Creatinine Ratio 14.9 Glucose 88 POC Glucose 94 POC Glucose (other) 88 Estimat Average Glucose Hemoglobin A1c Calcium 9.6 POC Ioniz Calcium Nel 1.20 Magnesium 2.1 Total Bilirubin 0.9 AST 13 ALT 3 L Alkaline Phosphatase 76 Troponin I High Sens 2.3 Total Protein 7.0 Albumin 4.4 Globulin 2.6 Albumin/Globulin Ratio 1.7 Triglycerides Cholesterol LDL Cholesterol, Calc VLDL Cholesterol, Calc HDL Cholesterol Cholesterol/HDL Ratio Urine Color Urine Appearance Urine pH Ur Specific [place] Urine Protein Urine Glucose (UA) Urine Ketones Urine Blood Urine Nitrite Urine Bilirubin Urine Urobilinogen Ur Leukocyte Esterase 02/23/24 02/24/24 Unknown 05:59 WBC 5.90 RBC 4.86 Hgb 15.0 POC Hgb Hct 45.4 POC Hct MCV 93.4 MCH 30.9 MCHC 33.0 RDW Std Deviation 42.2 RDW Coeff of Domo 12.1 Plt Count 269 MPV 8.9 L Immature Gran % (Auto) 0.3 Neut % (Auto) 65.6 Lymph % (Auto) 17.8 [place] % (Auto) 11.7 Eos % (Auto) 3.9 Baso % (Auto) 0.7 Neut # (Auto) 3.87 Lymph # (Auto) 1.05 L [place] # (Auto) 0.69 H Eos # (Auto) 0.23 Baso # (Auto) 0.04 Immature Gran # (Auto) 0.02 PT INR APTT PTT Ratio POC Sodium Sodium 141 POC Potassium Potassium 4.6 POC Chloride Chloride 103 Carbon Dioxide 33 H POC Total CO2 Anion Gap 5 POC Anion Gap POC BUN BUN 16 Creatinine 0.82 POC Creatinine Est Cr Clr Drug Dosing 92.9 Est GFR ( Amer) 96.0 Est GFR (Non-Af Amer) 82.9 BUN/Creatinine Ratio 19.5 Glucose 91 POC Glucose POC Glucose (other) Estimat Average Glucose 111 Hemoglobin A1c 5.5 Calcium 9.2 POC Ioniz Calcium Nel Magnesium Total Bilirubin AST ALT Alkaline Phosphatase Troponin I High Sens Total Protein Albumin Globulin Albumin/Globulin Ratio Triglycerides 129 Cholesterol 169 LDL Cholesterol, Calc 88 VLDL Cholesterol, Calc 26 HDL Cholesterol 55 Cholesterol/HDL Ratio 3.1 Urine Color Yellow Urine Appearance Clear Urine pH 6.5 Ur Specific [place] 1.018 Urine Protein Negative Urine Glucose (UA) Negative Urine Ketones Negative Urine Blood Negative Urine Nitrite Negative Urine Bilirubin Negative Urine Urobilinogen Negative Ur Leukocyte Esterase Negative Pending Results Patient Have Any Pending Studies at Discharge: No Discharge Instructions Given to Patient (Per Discharging Provider) DISCHARGE INSTRUCTION TO PATIENT/FAMILY: Follow-up with your primary care provider within 1 week regarding: Posthospital discharge, medication review, medication refills and follow-up on all your medical problems Please take all your discharge medications, discharge information and discharge instructions to all your doctors appointments. You were seen by the neurologist Dr. Barnes during this hospital stay. You were diagnosed with a complex migraine. Neurologist is recommending tapering gabapentin to 300 mg once daily for 1 week and then discontinue. Follow-up with neurology Ariella Sanchez PA-C, at [facility] in 2-3 weeks time as outpatient Total Time Total Time Spent Total Time Spent (In Minutes): 35 minutes Total Time Includes: Examination of the Patient, Discharge Planning and Medication Reconciliation Coding Level of Care Code 52774 INP/OBS DISCH >30 MIN Diagnoses Complicated migraine G43.109 LEEANN (obstructive sleep apnea) G47.33 Parkinson disease G20
== END 2024-02-24 15:45 | disposition home or self-care (01) | DRG 103 ==
LOC: ED 12:22 → SUATTDRO 16:01 → 2E 16:01